=== PATIENT | male | born 1950 | race Caucasian/White ===

== ENCOUNTER 2019-03-03 07:56 | Emergency (ER) | payer BC, OTHER ==
[2019-03-03 08:30] LABS: Absolute Lymphocytes (CBC) 1.6 K/uL (0.7-4.9); Basophils % 1.3 % (0-1.3); Hematocrit 44.9 % (39.6-49.0); Lymphocytes % 25.8 % (15.3-44.8); MPV 7.3 fL (7.6-11.3); Protime INR 1.33
[2019-03-03 08:51] LABS: ALT/SGPT 37 U/L (12-78); AST/SGOT 23 U/L (15-37); Albumin 3.8 g/dL (3.4-5.0); Alkaline Phosphatase 53 U/L (45-117); BUN Blood Urea Nitrogen 17 mg/dL (7-18); Bicarbonate 26 mmol/L (21-32); Bilirubin Direct < 0.1 mg/dL (0-0.2); Bilirubin Total 0.3 mg/dL (0.2-1.0); Glucose Level 154 mg/dL (74-106); Magnesium 1.9 mg/dL (1.8-2.4); NT PRO-BNP 182 pg/mL (<125); Potassium 4.2 mmol/L (3.5-5.1); Protein, Total 7.7 g/dL (6.4-8.2); Sodium Level 139 mmol/L (136-145); Troponin (Emerg Dept Use Only) < 0.02 ng/mL (0.0-0.045)
--- NOTE | 2019-03-03 09:53 | ER ---
Nurse's Notes [facility] Name: Zeus Mcknight Age: 68 yrs Sex: Male : 1950 Arrival Date: 03/03/2019 Time: 08:00 Bed 19 Private MD: Bryce Montgomery Diagnosis: Person with feared health complaint in whom no diagnosis is made Presentation: 03/03 08:07 Presenting complaint: Patient states: FEELS LIKE AFIB. Transition of care: patient was bp not received from another setting of care. Onset of symptoms is unknown. Risk Assessment: Do you want to hurt yourself or someone else? Patient reports no desire to harm self or others. Initial Sepsis Screen: Does the patient meet any 2 criteria? No. Patient's initial sepsis screen is negative. Does the patient have a suspected source of infection? No. Patient's initial sepsis screen is negative. Care prior to arrival: None. 08:07 Method Of Arrival: Ambulatory bp 08:07 Acuity: HARLEEN 2 bp Triage Assessment: 08:09 General: Appears in no apparent distress. comfortable, Behavior is cooperative, bp appropriate for age, anxious. Pain: Denies pain. EENT: No deficits noted. Neuro: No deficits noted. Cardiovascular: Rhythm is sinus rhythm. Respiratory: No deficits noted. GI: No signs and/or symptoms were reported involving the gastrointestinal system. : No signs and/or symptoms were reported regarding the genitourinary system. Derm: No deficits noted. Musculoskeletal: No deficits noted. Historical: - Allergies: 08:09 No Known Allergies; bp - Home Meds: 08:09 sotalol Oral for Prevention of Recurrent Atrial Fibrillation [Active]; Xarelto Oral bp [Active]; Metformin Oral [Active]; Glipizide Oral [Active]; - PMHx: 08:09 Atrial Fib; DVT; pulmonary embolus; Diabetes - NIDDM; bp - Immunization history:: Adult Immunizations up to date. - Social history:: Smoking status: Patient/guardian denies using tobacco. - Ebola Screening: : No symptoms or risks identified at this time. Screenin:11 Abuse screen: Denies threats or abuse. Denies injuries from another. Nutritional bp screening: No deficits noted. Tuberculosis screening: No symptoms or risk factors identified. Fall Risk None identified. Assessment: 08:11 General: SEE TRIAGE NOTE. bp 08:57 Reassessment: ALL CURRENT ORDERS COMPLETED, NO S/S AT THIS TIME. bp 09:58 Reassessment: PT DC HOME AMBULATORY WITH FAMILY, DX WITH DIZZINESS. bp Vital Signs: 08:09 BP 120 / 74; Pulse 86; Resp 12; Temp 97.8; Pulse Ox 95% on R/A; Weight 98.88 kg; Height bp 5 ft. 9 in. (175.26 cm); 08:57 BP 107 / 52; Pulse 83; Resp 21; Pulse Ox 94% ; bp 09:44 BP 118 / 57; Pulse 70; Resp 14; Pulse Ox 96% on R/A; bp 08:09 Body Mass Index 32.19 (98.88 kg, 175.26 cm) bp ED Course: 07:59 Krishan Anderson, RN is Primary Nurse. bp 08:00 Patient arrived in ED. rg4 08:00 Deanne Jimenez [facility]-C [facility]. snw 08:00 Arturo Real MD is Attending Physician. snw 08:01 Bryce Montgomery MD is Private Physician. rg4 08:08 Triage completed. bp 08:09 Arm band placed on right wrist. bp 08:11 Patient has correct armband on for positive identification. Placed in gown. Bed in low bp position. Call light in reach. Side rails up X2. Adult w/ patient. 08:25 Inserted saline lock: 22 gauge in right antecubital area, using aseptic technique. bp Blood collected. 09:40 Bryce Montgomery MD is Referral Physician. snw 09:58 No provider procedures requiring assistance completed. IV discontinued, intact, bp bleeding controlled, No redness/swelling at site. Pressure dressing applied. Administered Medications: No medications were administered Point of Care Testing: Blood Glucose: 08:29 Blood Glucose: 151 mg/dL; bp Ranges: Outcome: 09:40 Discharge ordered by . snw 09:58 Discharged to home ambulatory, with family. bp 09:58 Condition: stable 09:58 Discharge instructions given to patient, Instructed on discharge instructions, follow up and referral plans. Demonstrated understanding of instructions, follow-up care. 09:59 Patient left the ED. bp Signatures: Deanne Jimenez FNP-C PULL UP [employer]-[place] rg4 Justin, Krishan, RN RN bp
--- NOTE | 2019-03-03 09:54 | EDPHYS ---
Physician Documentation [facility] Name: Zeus Mcknight Age: 68 yrs Sex: Male : 1950 Arrival Date: 03/03/2019 Time: 08:00 Bed 19 Private MD: Bryce Montgomery ED Physician Arturo Real HPI: 03/03 08:07 This 68 yrs old Male presents to ER via Unassigned with complaints of Doesn't snw Feel Right. 08:07 Onset: The symptoms/episode began/occurred suddenly, just prior to arrival. Associated snw signs and symptoms: Pertinent positives: weak, dizzy, felt like a. fib. Modifying factors: The patient symptoms are alleviated by rest. The patient has experienced similar episodes in the past, multiple times. It is unknown whether or not the patient has recently seen a physician. pt feels back to normal on arrival. States he has recently added/changed Glipizide . Historical: - Allergies: 08:09 No Known Allergies; bp - Home Meds: 08:09 sotalol Oral for Prevention of Recurrent Atrial Fibrillation [Active]; Xarelto Oral bp [Active]; Metformin Oral [Active]; Glipizide Oral [Active]; - PMHx: 08:09 Atrial Fib; DVT; pulmonary embolus; Diabetes - NIDDM; bp - Immunization history:: Adult Immunizations up to date. - Social history:: Smoking status: Patient/guardian denies using tobacco. - Ebola Screening: : No symptoms or risks identified at this time. ROS: 08:06 Eyes: Negative for injury, pain, redness, and discharge, ENT: Negative for injury, snw pain, and discharge, Neck: Negative for injury, pain, and swelling, Cardiovascular: Negative for chest pain, palpitations, and edema, Respiratory: Negative for shortness of breath, cough, wheezing, and pleuritic chest pain, Abdomen/GI: Negative for abdominal pain, nausea, vomiting, diarrhea, and constipation, Back: Negative for injury and pain, : Negative for injury, bleeding, discharge, and swelling, MS/Extremity: Negative for injury and deformity, Skin: Negative for injury, rash, and discoloration, Psych: Negative for depression, anxiety, suicide ideation, homicidal ideation, and hallucinations. 08:06 Constitutional: Positive for fatigue, felt dizzy and like passing out in shower this am. 08:06 Neuro: Positive for dizziness, "felt like a. fib". Exam: 08:06 Constitutional: This is a well developed, well nourished patient who is awake, alert, snw and in no acute distress. Head/Face: Normocephalic, atraumatic. Eyes: Pupils equal round and reactive to light, extra-ocular motions intact. Lids and lashes normal. Conjunctiva and sclera are non-icteric and not injected. Cornea within normal limits. Periorbital areas with no swelling, redness, or edema. ENT: Nares patent. No nasal discharge, no septal abnormalities noted. Tympanic membranes are normal and external auditory canals are clear. Oropharynx with no redness, swelling, or masses, exudates, or evidence of obstruction, uvula midline. Mucous membranes moist. Neck: Trachea midline, no thyromegaly or masses palpated, and no cervical lymphadenopathy. Supple, full range of motion without nuchal rigidity, or vertebral point tenderness. No Meningismus. Chest/axilla: Normal chest wall appearance and motion. Nontender with no deformity. No lesions are appreciated. Cardiovascular: Regular rate and rhythm with a normal S1 and S2. No gallops, murmurs, or rubs. Normal PMI, no JVD. No pulse deficits. Respiratory: Lungs have equal breath sounds bilaterally, clear to auscultation and percussion. No rales, rhonchi or wheezes noted. No increased work of breathing, no retractions or nasal flaring. Abdomen/GI: Soft, non-tender, with normal bowel sounds. No distension or tympany. No guarding or rebound. No evidence of tenderness throughout. Back: No spinal tenderness. No costovertebral tenderness. Full range of motion. Skin: Warm, dry with normal turgor. Normal color with no rashes, no lesions, and no evidence of cellulitis. MS/ Extremity: Pulses equal, no cyanosis. Neurovascular intact. Full, normal range of motion. Neuro: Awake and alert, GCS 15, oriented to person, place, time, and situation. Cranial nerves II-XII grossly intact. Motor strength 5/5 in all extremities. Sensory grossly intact. Cerebellar exam normal. Normal gait. Psych: Awake, alert, with orientation to person, place and time. Behavior, mood, and affect are within normal limits. Vital Signs: 08:09 BP 120 / 74; Pulse 86; Resp 12; Temp 97.8; Pulse Ox 95% on R/A; Weight 98.88 kg; Height bp 5 ft. 9 in. (175.26 cm); 08:57 BP 107 / 52; Pulse 83; Resp 21; Pulse Ox 94% ; bp 09:44 BP 118 / 57; Pulse 70; Resp 14; Pulse Ox 96% on R/A; bp 08:09 Body Mass Index 32.19 (98.88 kg, 175.26 cm) bp MDM: 08:06 Patient medically screened. snw 09:38 Data reviewed: vital signs, nurses notes. Data interpreted: Pulse oximetry: on room air snw is 96 %. Interpretation: acceptable. Counseling: I had a detailed discussion with the patient and/or guardian regarding: the historical points, exam findings, and any diagnostic results supporting the discharge/admit diagnosis, lab results, radiology results, the need for outpatient follow up, to return to the emergency department if symptoms worsen or persist or if there are any questions or concerns that arise at home. Special discussion: Based on the history and exam findings, there is no indication for further emergent testing or inpatient evaluation. I discussed with the patient/guardian the need to see the primary care provider for further evaluation of the symptoms. 03/03 08:06 Order name: Basic Metabolic Panel; Complete Time: 08:55 snw 03/03 08:06 Order name: CBC with Diff; Complete Time: 08:47 snw 03/03 08:06 Order name: LFT's; Complete Time: 08:55 snw 03/03 08:06 Order name: Magnesium; Complete Time: 08:55 snw 03/03 08:06 Order name: NT PRO-BNP; Complete Time: 08:55 snw 08 08:06 Order name: PT-INR; Complete Time: 08:47 snw 08 08:06 Order name: Troponin (emerg Dept Use Only); Complete Time: 08:55 snw 03/03 08:06 Order name: EKG; Complete Time: 08:07 snw 03/03 08:06 Order name: Cardiac monitoring; Complete Time: 08:07 snw 03/03 08:06 Order name: EKG - Nurse/Tech; Complete Time: 08:07 snw 03/03 08:06 Order name: IV Saline Lock; Complete Time: 08: snw 03/03 08:06 Order name: Labs collected and sent; Complete Time: : snw 03/03 08:06 Order name: O2 Per Protocol; Complete Time: 08: snw 03/03 08:06 Order name: O2 Sat Monitoring; Complete Time: 08: snw 03/03 08:06 Order name: FSBS; Complete Time: snw Administered Medications: No medications were administered Point of Care Testing: Blood Glucose: : Blood Glucose: 151 mg/dL; bp Ranges: Critical Glucose Levels:Adult <50 mg/dl or >400 mg/dl <40 mg/dl or >180 mg/dl Disposition: 10:55 Co-signature as Attending Physician, Arturo Real MD. rn Disposition: 03/03/19 09:40 Discharged to Home. Impression: Person with feared health complaint in whom no diagnosis is made. - Condition is Stable. - Discharge Instructions: Dizziness. - Work release form, Medication Reconciliation Form, Thank You Letter, Antibiotic Education, Prescription Opioid Use form. - Follow up: Bryce Montgomery MD; When: 1 - 2 days; Reason: Recheck today's complaints, Continuance of care, Re-evaluation by your physician. Follow up: Emergency Department; When: As needed; Reason: Worsening of condition. Signatures: Dispatcher [employer] EDMS Deanne Jimenez, ELASTIC CUTTER-C ELASTIC CUTTER-Csnw Arturo Real MD MD rn Peltier, Brian, RN RN bp Corrections: (The following items were deleted from the chart) 09:59 09:40 03/03/2019 09:40 Discharged to Home. Impression: Person with feared health bp complaint in whom no diagnosis is made. Condition is Stable. Forms are Medication Reconciliation Form, Thank You Letter, Antibiotic Education, Prescription Opioid Use. Follow up: Bryce Montgomery; When: 1 - 2 days; Reason: Recheck today's complaints, Continuance of care, Re-evaluation by your physician. Follow up: Emergency Department; When: As needed; Reason: Worsening of condition. snw
[2019-03-03 10:08] VITALS: TEMP 97.8
[2019-03-03 10:10] VITALS: BP 118/57; O2SAT 96
--- NOTE | 2019-03-03 10:40 | EKG ---
Test Date: 2019-03-03 Test Time: 08:06:32 Metal Fabricator Welder: SHANA MEASUREMENT RESULTS: Intervals: Rate: 86 CA: 136 QRSD: 80 QT: 378 QTc: 452 [place]: P: 73 CA: 136 QRS: 58 T: 81 INTERPRETIVE STATEMENTS: Normal sinus rhythm Normal ECG Compared to ECG 06/26/2017 08:13:36 Atrial fibrillation no longer present Electronically Signed On 03-03-19 10:39:06 CDT by Bhanu Lee
== END 2019-03-03 09:59 | disposition home or self-care (01) ==
LOC: ER 07:56
DX: Z71.1 Person with feared health complaint in whom no diagnosis is made (principal); R42 Dizziness and giddiness; I48.91 Unspecified atrial fibrillation; E11.9 Type 2 diabetes mellitus without complications; Z86.718 Personal history of other venous thrombosis and embolism; Z86.711 Personal history of pulmonary embolism; Z79.01 Long term (current) use of anticoagulants; Z79.84 Long term (current) use of oral hypoglycemic drugs
CPT/HCPCS: 36415; 80048; 80076; 82962; 83735; 83880; 84484; 85025; 85610; 93005; 99284

== ENCOUNTER 2019-03-20 04:18 | Emergency (ER) | payer OTHER ==
[2019-03-20] MEDS ORDERED: NA CHLORIDE 0.9% 1,000 ML ONE ×2 (04:52→06:06)
[2019-03-20] MEDS ORDERED: FAMOTIDINE 20 MG/2 ML VIAL IV ONE (04:52)
[2019-03-20] MEDS ORDERED: ONDANSETRON 4 MG/2 ML VIAL ONE (04:52)
[2019-03-20 05:15] LABS: Absolute Lymphocytes (CBC) 0.4 K/uL (0.7-4.9); Basophils % 0.3 % (0-1.3); Hematocrit 45.3 % (39.6-49.0); Lymphocytes % 3.3 % (15.3-44.8); MPV 8.9 fL (7.6-11.3); Protime INR 0.99; RBC Red Blood Cell Count 4.89 M/uL (4.33-5.43)
[2019-03-20 05:34] LABS: ALT/SGPT 32 U/L (12-78); AST/SGOT 17 U/L (15-37); Albumin 3.8 g/dL (3.4-5.0); Alkaline Phosphatase 57 U/L (45-117); BUN Blood Urea Nitrogen 22 mg/dL (7-18); Bicarbonate 27 mmol/L (21-32); Bilirubin Direct 0.1 mg/dL (0-0.2); Bilirubin Total 0.5 mg/dL (0.2-1.0); Glucose Level 166 mg/dL (74-106); Lipase 356 U/L (73-393); Magnesium 1.7 mg/dL (1.8-2.4); Potassium 4.8 mmol/L (3.5-5.1); Protein, Total 8.2 g/dL (6.4-8.2); Sodium Level 139 mmol/L (136-145); Troponin (Emerg Dept Use Only) < 0.02 ng/mL (0.0-0.045)
[2019-03-20 06:07] LABS: Blood Morphology Comment NOT SEEN (NOT SEEN); Platelet Estimate ADEQ; Platelets, Giant FEW
--- NOTE | 2019-03-20 06:31 | ER ---
Nurse's Notes [facility] Name: Zeus Mcknight Age: 68 yrs Sex: Male : 1950 Arrival Date: 03/20/2019 Time: 04:22 Bed 5 Private MD: Diagnosis: acute vomiting;acute diarrhea Presentation: 03/20 04:31 Presenting complaint: Patient states: intermittent abd pain with N/V/D since 230 ak1 03/19/19. Transition of care: patient was not received from another setting of care. Onset of symptoms was March 19, 2019 at 23:00. Risk Assessment: Do you want to hurt yourself or someone else? Patient reports no desire to harm self or others. Initial Sepsis Screen: Does the patient meet any 2 criteria? No. Patient's initial sepsis screen is negative. Does the patient have a suspected source of infection? No. Patient's initial sepsis screen is negative. Care prior to arrival: None. 04:31 Method Of Arrival: Ambulatory ak1 04:31 Acuity: HARLEEN 3 ak1 Triage Assessment: 04:31 General: Appears in no apparent distress. Behavior is calm, cooperative. ak1 04:31 Pain: Denies pain. GI: Reports cramping, diarrhea, nausea, vomiting, since 2299. ak1 Historical: - Allergies: 04:31 No Known Allergies; ak1 - Home Meds: 04:31 Xarelto 15 mg oral tab daily [Active]; sotalol 80 mg oral tab 2 times per day [Active]; ak1 metformin 1,000 mg oral tab 2 times per day [Active]; selenium 200 mcg oral cap [Active]; - PMHx: 04:31 Atrial Fib; Diabetes - NIDDM; pulmonary embolus; DVT; ak1 - PSHx: 04:31 Hernia repair; Carotid surgery; ak1 - Immunization history:: Adult Immunizations unknown. - Social history:: Smoking status: Patient/guardian denies using tobacco. - Ebola Screening: : No symptoms or risks identified at this time. - Family history:: not pertinent. - Hospitalizations: : No recent hospitalization is reported. Screenin:33 Abuse screen: Denies threats or abuse. Denies injuries from another. Nutritional ak1 screening: No deficits noted. Tuberculosis screening: No symptoms or risk factors identified. Fall Risk None identified. Assessment: 04:31 General: Appears in no apparent distress. comfortable. Pain: Denies pain. Neuro: Level cc3 of Consciousness is awake, alert, obeys commands, Oriented to person, place, time, situation, Appropriate for age. Cardiovascular: Denies chest pain, Capillary refill < 3 seconds Patient's skin is warm and dry. Respiratory: Airway is patent Respiratory effort is even, unlabored. GI: Abdomen is round Bowel sounds present X 4 quads. Abd is soft and non tender X 4 quads. : No signs and/or symptoms were reported regarding the genitourinary system. EENT: No signs and/or symptoms were reported regarding the EENT system. Derm: Skin is intact, is healthy with good turgor, Skin is pink, warm \T\ dry. normal. Musculoskeletal: Circulation, motion, and sensation intact. Range of motion: intact in all extremities. 05:32 Reassessment: Patient appears in no apparent distress at this time. Patient and/or cc3 family updated on plan of care and expected duration. Pain level reassessed. Patient is alert, oriented x 3, equal unlabored respirations, skin warm/dry/pink. 06:23 Reassessment: Patient appears in no apparent distress at this time. Patient and/or cc3 family updated on plan of care and expected duration. Pain level reassessed. Patient is alert, oriented x 3, equal unlabored respirations, skin warm/dry/pink. Patient denies pain at this time. Patient states feeling better. Patient states symptoms have improved. 06:48 Reassessment: Dr. Amador ordered discharge for the patient but after the IV fluid bolus.cc3 Vital Signs: 04:29 BP 120 / 46; Pulse 87; Resp 18 S; Temp 98.8(O); Pulse Ox 96% on R/A; Weight 99.79 kg cc3 (R); Height 5 ft. 9 in. (175.26 cm) (R); Pain 0/10; 05:00 BP 106 / 55; Pulse 84; Resp 20; Pulse Ox 94% on R/A; Pain 0/10; tl1 06:04 BP 120 / 49; Pulse 85; Resp 13 S; Pulse Ox 96% on R/A; cc3 06:50 BP 111 / 50; Pulse 89; Resp 16 S; Pulse Ox 95% on R/A; cc3 04:29 Body Mass Index 32.49 (99.79 kg, 175.26 cm) cc3 ED Course: 04:22 Patient arrived in ED. cl3 04:29 Ofe Palacios is Primary Nurse. cc3 04:29 Sky Amador MD is Attending Physician. wa 04:32 Triage completed. ak1 04:32 Arm band placed on Patient placed in an exam room, on a stretcher, on pulse oximetry, ak1 Patient notified of wait time. 04:32 Inserted saline lock: 20 gauge in right antecubital area, using aseptic technique. cc3 Blood collected. inserted by DENIS Sánchez. 04:33 Patient has correct armband on for positive identification. Placed in gown. Bed in low ak1 position. Call light in reach. Side rails up X 1. Adult w/ patient. Pulse ox on. NIBP on. 06:25 Sky Kendrick MD is Referral Physician. wa 06:49 No provider procedures requiring assistance completed. cc3 07:00 Report given to DENIS Beard. cc3 07:15 IV discontinued, intact, bleeding controlled, No redness/swelling at site. Pressure hb dressing applied. Administered Medications: 04:59 Drug: NS 0.9% 1000 ml Route: IV; Rate: 1 bolus; Site: right antecubital; tl1 06:00 Follow up: Response: No adverse reaction; IV Status: Completed infusion; IV Intake: cc3 1000ml 04:59 Drug: Pepcid 20 mg Route: IVP; Infused Over: 2 mins; Site: right antecubital; tl1 05:32 Follow up: Response: No adverse reaction; Pain is decreased cc3 04:59 Drug: Zofran 4 mg Route: IVP; Infused Over: 2 mins; Site: right antecubital; tl1 05:32 Follow up: Response: No adverse reaction; Nausea is decreased cc3 06:09 Drug: NS 0.9% 1000 ml Route: IV; Rate: 1 bolus; Site: right antecubital; cc3 07:15 Follow up: Response: No adverse reaction; IV Status: Completed infusion; IV Intake: hb 1000ml Intake: 06:00 IV: 1000ml; Total: 1000ml. cc3 07:15 IV: 1000ml; Total: 2000ml. hb Outcome: 06:29 Discharge ordered by . wa 06:49 Discharge instructions given to patient, family, Instructed on discharge instructions, cc3 follow up and referral plans. medication usage, Demonstrated understanding of instructions, follow-up care, medications, Prescriptions given X 2. 07:15 Discharged to home ambulatory, with significant other. 07:15 Condition: stable 07:16 Patient left the ED. Signatures: Princess Crooks RN RN tl1 Britney Mora RN RN ak1 Kisha Camejo RN RN Sky Amador MD MD wa Cordel, Charlene cc3 Jean Srinivasan cl3
--- NOTE | 2019-03-20 06:31 | EDPHYS ---
Physician Documentation [facility] Name: Zeus Mcknight Age: 68 yrs Sex: Male : 1950 Arrival Date: 03/20/2019 Time: 04:22 Bed 5 Private MD: ED Physician Sky Amador HPI: 03/20 04:52 This 68 yrs old Male presents to ER via Ambulatory with complaints of wa Abdominal Pain, Nausea/Vomiting/Diarrhea. 04:52 The patient presents to the emergency department with nausea, that is moderate, wa vomiting, 5 times since the onset of symptoms, diarrhea. Onset: The symptoms/episode began/occurred 5 hour(s) ago. Possible causes: unknown. The symptoms are aggravated by nothing. The symptoms are alleviated by nothing. Associated signs and symptoms: Pertinent positives: diarrhea, nausea, vomiting, Pertinent negatives: abdominal pain, constipation, dysuria, fever. Severity of symptoms: At their worst the symptoms were moderate in the emergency department the symptoms are unchanged. The patient has not experienced similar symptoms in the past. The patient has not recently seen a physician. per pt, began vomiting with assoc diarrhea since 11PM last night. denies pain, fever or chills. describes stool as straw-colored. not bloody-appearing. Historical: - Allergies: 04:31 No Known Allergies; ak1 - Home Meds: 04:31 Xarelto 15 mg oral tab daily [Active]; sotalol 80 mg oral tab 2 times per day [Active]; ak1 metformin 1,000 mg oral tab 2 times per day [Active]; selenium 200 mcg oral cap [Active]; - PMHx: 04:31 Atrial Fib; Diabetes - NIDDM; pulmonary embolus; DVT; ak1 - PSHx: 04:31 Hernia repair; Carotid surgery; ak1 - Immunization history:: Adult Immunizations unknown. - Social history:: Smoking status: Patient/guardian denies using tobacco. - Ebola Screening: : No symptoms or risks identified at this time. - Family history:: not pertinent. - Hospitalizations: : No recent hospitalization is reported. ROS: 04:55 Constitutional: Negative for fever, chills, and weight loss, Eyes: Negative for injury, wa pain, redness, and discharge, ENT: Negative for injury, pain, and discharge, Neck: Negative for injury, pain, and swelling, Cardiovascular: Negative for chest pain, palpitations, and edema, Respiratory: Negative for shortness of breath, cough, wheezing, and pleuritic chest pain, Back: Negative for injury and pain, : Negative for injury, bleeding, discharge, and swelling, MS/Extremity: Negative for injury and deformity, Skin: Negative for injury, rash, and discoloration, Neuro: Negative for headache, weakness, numbness, tingling, and seizure, Psych: Negative for depression, anxiety, suicide ideation, homicidal ideation, and hallucinations. 04:55 Abdomen/GI: Positive for nausea and vomiting, nausea, vomiting, and diarrhea, nausea, vomiting, diarrhea, Negative for abdominal pain, black/tarry stool, rectal bleeding. Exam: 04:55 Constitutional: This is a well developed, well nourished patient who is awake, alert, wa and in no acute distress. Head/Face: Normocephalic, atraumatic. Eyes: Pupils equal round and reactive to light, extra-ocular motions intact. Lids and lashes normal. Conjunctiva and sclera are non-icteric and not injected. Cornea within normal limits. Periorbital areas with no swelling, redness, or edema. ENT: Nares patent. No nasal discharge, no septal abnormalities noted. Tympanic membranes are normal and external auditory canals are clear. Oropharynx with no redness, swelling, or masses, exudates, or evidence of obstruction, uvula midline. Mucous membranes moist. Neck: Trachea midline, no thyromegaly or masses palpated, and no cervical lymphadenopathy. Supple, full range of motion without nuchal rigidity, or vertebral point tenderness. No Meningismus. Chest/axilla: Normal chest wall appearance and motion. Nontender with no deformity. No lesions are appreciated. Cardiovascular: Regular rate and rhythm with a normal S1 and S2. No gallops, murmurs, or rubs. Normal PMI, no JVD. No pulse deficits. Respiratory: Lungs have equal breath sounds bilaterally, clear to auscultation and percussion. No rales, rhonchi or wheezes noted. No increased work of breathing, no retractions or nasal flaring. Back: No spinal tenderness. No costovertebral tenderness. Full range of motion. Skin: Warm, dry with normal turgor. Normal color with no rashes, no lesions, and no evidence of cellulitis. MS/ Extremity: Pulses equal, no cyanosis. Neurovascular intact. Full, normal range of motion. Neuro: Awake and alert, GCS 15, oriented to person, place, time, and situation. Cranial nerves II-XII grossly intact. Motor strength 5/5 in all extremities. Sensory grossly intact. Cerebellar exam normal. Normal gait. Psych: Awake, alert, with orientation to person, place and time. Behavior, mood, and affect are within normal limits. 04:55 Abdomen/GI: Inspection: abdomen appears normal, Bowel sounds: normal, Palpation: abdomen is soft and non-tender, in all quadrants. Vital Signs: 04:29 BP 120 / 46; Pulse 87; Resp 18 S; Temp 98.8(O); Pulse Ox 96% on R/A; Weight 99.79 kg cc3 (R); Height 5 ft. 9 in. (175.26 cm) (R); Pain 0/10; 05:00 BP 106 / 55; Pulse 84; Resp 20; Pulse Ox 94% on R/A; Pain 0/10; tl1 06:04 BP 120 / 49; Pulse 85; Resp 13 S; Pulse Ox 96% on R/A; cc3 06:50 BP 111 / 50; Pulse 89; Resp 16 S; Pulse Ox 95% on R/A; cc3 04:29 Body Mass Index 32.49 (99.79 kg, 175.26 cm) cc3 MDM: 04:29 Patient medically screened. vt 04:55 Differential diagnosis: Nonspecific abd pain, gastritis, pancreatitis, viral vt gastroenteritis, gastroenteritis. 05:36 Data reviewed: vital signs, nurses notes, lab test result(s), EKG, radiologic studies. vt Test interpretation: by ED physician or midlevel provider: EKG: Interp by me: HR 85. sinus. nml axis. no acute STEMI. no afib. no significant dysrrhythmia. 05:40 Test interpretation: by ED physician or midlevel provider: labs noted for elevated vt glucose 166. elevated BUN 22, and wbc 11.8. 06:17 Response to treatment: the patient's symptoms have markedly improved after treatment. vt ED course: very much improved. did not make ample urine post 1 liter saline. will give a second liter. labs wnl. pt states feels much better. no vomiting or diarrhea at present. will d/c with meds. . 03/20 04:49 Order name: Basic Metabolic Panel; Complete Time: 05:39 03/20 04:49 Order name: CBC with Diff; Complete Time: 06:33 03/20 04:49 Order name: LFT's; Complete Time: 05:39 03/20 04:49 Order name: Magnesium; Complete Time: 05:39 03/20 04:49 Order name: PT-INR; Complete Time: 05:39 03/20 04:49 Order name: Troponin (emerg Dept Use Only); Complete Time: 05:39 03/20 04:49 Order name: EKG; Complete Time: 04:50 03/20 04:49 Order name: Cardiac monitoring; Complete Time: 04:58 03/20 04:49 Order name: Lipase; Complete Time: 05:39 03/20 05:21 Order name: Manual Differential; Complete Time: 06:33 EDMS 03/20 04:49 Order name: EKG - Nurse/Tech; Complete Time: 04:58 03/20 04:49 Order name: IV Saline Lock; Complete Time: 04:58 03/20 04:49 Order name: Labs collected and sent; Complete Time: 04:58 03/20 04:49 Order name: O2 Sat Monitoring; Complete Time: 04:58 vt Administered Medications: 04:59 Drug: NS 0.9% 1000 ml Route: IV; Rate: 1 bolus; Site: right antecubital; tl1 06:00 Follow up: Response: No adverse reaction; IV Status: Completed infusion; IV Intake: cc3 1000ml 04:59 Drug: Pepcid 20 mg Route: IVP; Infused Over: 2 mins; Site: right antecubital; tl1 05:32 Follow up: Response: No adverse reaction; Pain is decreased cc3 04:59 Drug: Zofran 4 mg Route: IVP; Infused Over: 2 mins; Site: right antecubital; tl1 05:32 Follow up: Response: No adverse reaction; Nausea is decreased cc3 06:09 Drug: NS 0.9% 1000 ml Route: IV; Rate: 1 bolus; Site: right antecubital; cc3 07:15 Follow up: Response: No adverse reaction; IV Status: Completed infusion; IV Intake: hb 1000ml Disposition: 03/20/19 06:29 Discharged to Home. Impression: acute vomiting, acute diarrhea. - Condition is Stable. - Discharge Instructions: Diarrhea, Adult, [id number], Vomiting, Adult. - Prescriptions for Zofran 4 mg Oral Tablet - take 1 tablet by ORAL route every 12 hours As needed; 20 tablet. Pepcid 20 mg Oral Tablet - take 1 tablet by ORAL route once daily for 10 days; 10 tablet. - Medication Reconciliation Form, Thank You Letter, Antibiotic Education, Prescription Opioid Use, Work release form, Family Work Release form. - Follow up: Sky Kendrick MD; When: 1 - 2 days; Reason: Re-evaluation by your physician. - Problem is new. - Symptoms have improved. - Notes: please take the medication as needed as prescribed. follow up with your doctor or the gastro doctor as discussed. return to to the ER immediately for any worsening concerns you may have Signatures: Dispatcher [employer] EDMS Princess Crooks RN RN tl1 Britney Mora RN RN ak1 Kisha Camejo RN RN Sky Amador MD MD vt Ofe Palacios cc3 Corrections: (The following items were deleted from the chart) 07:16 06:29 03/20/2019 06:29 Discharged to Home. Impression: acute vomiting; acute diarrhea. hb Condition is Stable. Forms are Medication Reconciliation Form, Thank You Letter, Antibiotic Education, Prescription Opioid Use. Follow up: Sky Kendrick; When: 1 - 2 days; Reason: Re-evaluation by your physician. Problem is new. Symptoms have improved. emily
[2019-03-20 07:24] VITALS: TEMP 98.8
[2019-03-20 07:28] VITALS: BP 111/50; O2SAT 95
--- NOTE | 2019-03-20 07:31 | EKG ---
Test Date: 2019-03-20 Test Time: 04:56:44 Piling Setter: REGINA MEASUREMENT RESULTS: Intervals: Rate: 85 UT: 136 QRSD: 78 QT: 386 QTc: 459 Stephen: P: 76 UT: 136 QRS: 59 T: 83 INTERPRETIVE STATEMENTS: Normal sinus rhythm Possible Left atrial enlargement Borderline ECG Compared to ECG 03/03/2019 08:06:32 No significant changes Electronically Signed On 03-20-19 07:31:08 CDT by Roberto Nieves
== END 2019-03-20 07:16 | disposition home or self-care (01) ==
LOC: ER 04:18
DX: R11.2 Nausea with vomiting, unspecified (principal); R19.7 Diarrhea, unspecified; E11.9 Type 2 diabetes mellitus without complications; I82.409 Acute embolism and thrombosis of unspecified deep veins of unspecified lower extremity
CPT/HCPCS: 96361; 93005; 85025; 80048; 36415; 83735; 85610; 80076; 84484; 83690; 96375; 96374; 99284; J7030 ×2; J2405

== ENCOUNTER 2020-08-22 10:18 | Emergency (ER) | payer OTHER ==
[2020-08-22 10:51] LABS: Absolute Lymphocytes (CBC) 1.6 K/uL (0.7-4.9); Basophils % 0.9 % (0-1.3); Hematocrit 42.8 % (39.6-49.0); Lymphocytes % 29.5 % (15.3-44.8); MPV 7.1 fL (7.6-11.3); RBC Red Blood Cell Count 4.72 M/uL (4.33-5.43)
[2020-08-22 10:56] LABS: Protime INR 1.05
--- NOTE | 2020-08-22 11:13 | RAD REPORT ---
EXAM DESCRIPTION: Isabelle Single View08/22/2020 11:07 am CLINICAL HISTORY: Palpitations COMPARISON: 2016 FINDINGS: The lungs appear clear of acute infiltrate. The heart is normal size IMPRESSION: No acute abnormalities displayed
[2020-08-22 11:21] LABS: ALT/SGPT 25 U/L (12-78); AST/SGOT 18 U/L (15-37); Albumin 3.8 g/dL (3.4-5.0); Alkaline Phosphatase 51 U/L (45-117); BUN Blood Urea Nitrogen 19 mg/dL (7-18); Bicarbonate 27 mmol/L (21-32); Bilirubin Direct 0.1 mg/dL (0-0.2); Bilirubin Total 0.5 mg/dL (0.2-1.0); Glucose Level 113 mg/dL (74-106); Magnesium 2.1 mg/dL (1.8-2.4); NT PRO-BNP 98 pg/mL (<125); Potassium 4.1 mmol/L (3.5-5.1); Protein, Total 7.7 g/dL (6.4-8.2); Sodium Level 139 mmol/L (136-145); Troponin (Emerg Dept Use Only) < 0.02 ng/mL (0.0-0.045)
--- NOTE | 2020-08-22 11:26 | RAD REPORT ---
EXAM DESCRIPTION: CT - Head Brain Wo Cont - 08/22/2020 11:13 am CLINICAL HISTORY: Dizziness COMPARISON: 2011 TECHNIQUE: Computed axial tomography of the head was obtained. IV contrast was not requested. All CT scans are performed using dose optimization technique as appropriate and may include automated exposure control or mA/KV adjustment according to patient size. FINDINGS: An intracranial bleed is not seen . The ventricles are normal in caliber. No extra-axial fluid collection is noted. Fluid within the sinuses/ mastoids is not seen. IMPRESSION: No acute intracranial abnormality is seen. If patient's symptoms persist MRI of the bra in would be recommended.
--- NOTE | 2020-08-22 12:08 | EDPHYS ---
Physician Documentation [facility] Name: Zeus Mcknight Age: 70 yrs Sex: Male : 1950 Arrival Date: 08/22/2020 Time: 10:30 Bed 17 Private MD: ED Physician Brett Arnold HPI: 08/22 10:57 This 70 yrs old Male presents to ER via EMS with complaints of Irregular pm1 Pulse. 10:57 The patient presents with a history of irregular heart beat. Context: The symptoms pm1 occur at rest, and the patient has a history of atrial fibrillation. Onset: The symptoms/episode began/occurred 1 hour(s) ago. Duration: The patient or guardian reports a single episode, that is now resolved, at onset he took extra sotalol. Modifying factors: The symptoms are aggravated by nothing. The symptoms are alleviated by extra medication. Associated signs and symptoms: Pertinent positives: dizziness, Pertinent negatives: chest pain, cough, fever, SOB. Severity of symptoms: in the emergency department the symptoms have resolved 30 minutes after taking extra sotalol. The patient has experienced similar episodes in the past, a few times. Historical: - Allergies: 10:37 No Known Allergies; ah - Home Meds: 10:37 metformin 1,000 mg Oral tab 2 times per day [Active]; sotalol 80 mg Oral tab 2 times ah per day for Prevention of Recurrent Atrial Fibrillation [Active]; Xarelto 15 mg Oral tab daily [Active]; - PMHx: 10:37 Atrial Fib; Diabetes - NIDDM; DVT; pulmonary embolus; ah - PSHx: 10:37 Hernia repair; Carotid surgery; - Immunization history:: Adult Immunizations not up to date, Pneumococcal vaccine is not up to date, patient has never been vaccinated. - Social history:: Smoking status: Patient denies any tobacco usage or history of. Patient uses alcohol, but reports only rare drinking. ROS: 10:57 Constitutional: Negative for fever, chills, and weight loss, Respiratory: Negative for pm1 shortness of breath, cough, wheezing, and pleuritic chest pain. 10:57 Abdomen/GI: Negative for abdominal pain, nausea, vomiting, diarrhea, and constipation, Back: Negative for injury and pain, MS/Extremity: Negative for injury and deformity, Skin: Negative for injury, rash, and discoloration. 10:57 Cardiovascular: Positive for palpitations, Negative for chest pain, edema. 10:57 Neuro: Positive for dizziness, Negative for headache, numbness, tingling, weakness. Exam: 10:57 Constitutional: This is a well developed, well nourished patient who is awake, alert, pm1 and in no acute distress. Head/Face: Normocephalic, atraumatic. 10:57 Chest/axilla: Normal chest wall appearance and motion. Nontender with no deformity. No lesions are appreciated. 10:57 Back: No spinal tenderness. No costovertebral tenderness. Full range of motion. Skin: Warm, dry with normal turgor. Normal color with no rashes, no lesions, and no evidence of cellulitis. 10:57 Neck: External neck: tenderness, is not appreciated, C-spine: vertebral tenderness, is not appreciated. 10:57 Cardiovascular: Exam negative for acute changes, Rate: normal, Rhythm: regular, Pulses: no pulse deficits are appreciated. 10:57 Respiratory: Exam negative for acute changes, respiratory distress, shortness of breath. 10:57 Abdomen/GI: Inspection: abdomen appears normal, Palpation: abdomen is soft and non-tender, in all quadrants. 10:57 Musculoskeletal/extremity: Extremities: grossly normal except: noted in the left wrist: swelling, tenderness, There is no evidence of abrasion, laceration, puncture, noted in the left elbow: tenderness, no evidence of decreased ROM, deformity, swelling. 10:57 Neuro: Exam negative for acute changes, Orientation: is normal, Motor: is normal, moves all fours. Vital Signs: 10:32 Pain 0/10; ah 10:32 BP 133 / 76; Pulse 71; Resp 15; Temp 97.9; Pulse Ox 95% ; Weight 95.71 kg; Height 5 ft. ah 9 in. (175.26 cm); 12:00 BP 123 / 60; Pulse 66; Resp 14; Pulse Ox 97% ; ah 10:32 Body Mass Index 31.16 (95.71 kg, 175.26 cm) Procedures: 17:23 Splinting: Splint applied to left arm using Orthoglass splint, sugar tong. applied by pm1 myself. Examined by me, post splint application: neurovascular intact, 2+ distal pulses palpable, brisk capillary refill noted, Patient tolerated well. MDM: 10:40 Patient medically screened. pm1 12:07 Data reviewed: vital signs. pm1 12:07 Counseling: I had a detailed discussion with the patient and/or guardian regarding: the pm1 historical points, exam findings, and any diagnostic results supporting the discharge/admit diagnosis, lab results, radiology results, the need for outpatient follow up, to return to the emergency department if symptoms worsen or persist or if there are any questions or concerns that arise at home. 12:07 ED course: Patient noted that his hyster machine operator instructed him to take extra sotalol as pm1 needed for atrial fibrillation. The patient followed his instructions at onset of atrial fibrillation this AM. Patient without any atrial fibrillation during ER visit. He has no symptoms and he wants to go home. 08/22 10:41 Order name: Basic Metabolic Panel; Complete Time: 11:23 pm08/22 10:41 Order name: CBC with Diff; Complete Time: 10:56 pm08/22 10:41 Order name: LFT's; Complete Time: 11:23 pm08/22 10:41 Order name: Magnesium; Complete Time: 11:23 pm08/22 10:41 Order name: NT PRO-BNP; Complete Time: 11:23 pm08/22 10:41 Order name: PT-INR; Complete Time: 10:57 pm08/22 10:41 Order name: Troponin (emerg Dept Use Only); Complete Time: 11:23 pm08/22 10:41 Order name: XRAY Chest (1 view); Complete Time: 11:23 pm08/22 10:41 Order name: EKG; Complete Time: 10:42 pm08/22 10:41 Order name: Cardiac monitoring; Complete Time: 10:47 pm08/22 10:41 Order name: EKG - Nurse/Tech; Complete Time: 10:47 pm08/22 10:41 Order name: IV Saline Lock; Complete Time: 10:47 pm08/22 10:41 Order name: TSH; Complete Time: 11:23 pm08/22 10:57 Order name: CT Head Brain wo Cont; Complete Time: 11:36 pm08/22 10:41 Order name: Labs collected and sent; Complete Time: 10:47 pm08/22 10:41 Order name: O2 Per Protocol; Complete Time: 10:47 pm1 08/22 10:41 Order name: O2 Sat Monitoring; Complete Time: 10:48 pm1 Administered Medications: No medications were administered Disposition: 08/22/20 12:07 Discharged to Home. Impression: Dizziness and giddiness. - Condition is Stable. - Discharge Instructions: Atrial Fibrillation, Dizziness. - Medication Reconciliation Form, Thank You Letter, Antibiotic Education, Prescription Opioid Use form. - Follow up: Emergency Department; When: As needed; Reason: Worsening of condition. Follow up: Private Physician; When: 2 - 3 days; Reason: Recheck today's complaints, Continuance of care, Re-evaluation by your physician. - Problem is new. - Symptoms have improved. Addendum: 08/23/2020 18:27 Co-signature as Attending Physician, Brett Arnold MD. m a2 Signatures: Dispatcher [employer] EDMS Isiah Botello, LISA ACID PURIFICATION EQUIPMENT OPERATOR pm1 Brett Arnold MD MD ma2 Colleen Lee RN RN Corrections: (The following items were deleted from the chart) 08/22 12:34 12:07 08/22/2020 12:07 Discharged to Home. Impression: Dizziness and giddiness. ah Condition is Stable. Forms are Medication Reconciliation Form, Thank You Letter, Antibiotic Education, Prescription Opioid Use. Follow up: Emergency Department; When: As needed; Reason: Worsening of condition. Follow up: Private Physician; When: 2 - 3 days; Reason: Recheck today's complaints, Continuance of care, Re-evaluation by your physician. Problem is new. Symptoms have improved. pm1
--- NOTE | 2020-08-22 12:08 | ER ---
Nurse's Notes [facility] Name: Zeus Mcknight Age: 70 yrs Sex: Male : 1950 Arrival Date: 08/22/2020 Time: 10:30 Bed 17 Private MD: Diagnosis: Dizziness and giddiness Presentation: 08/22 10:32 Coronavirus screen: At this time, the client does not indicate any symptoms associated ah with coronavirus-19. Ebola Screen: No symptoms or risks identified at this time. Risk Assessment: Do you want to hurt yourself or someone else? Patient reports no desire to harm self or others. Onset of symptoms was August 22, 2020. 10:32 Method Of Arrival: EMS: [facility] 10:32 Acuity: HARLEEN 3 10:32 Chief complaint: Patient states: Pt states that he felt like he was having an episode ah of afib and it lasted about 30 mins. He also states that he took an extra dose of his sotalolol 80mg this morning after he felt it start. 10:32 Initial Sepsis Screen: Does the patient meet any 2 criteria? No. Patient's initial sepsis screen is negative. Does the patient have a suspected source of infection? No. Patient's initial sepsis screen is negative. 10:39 Chief complaint:. Historical: - Allergies: 10:37 No Known Allergies; - Home Meds: 10:37 metformin 1,000 mg Oral tab 2 times per day [Active]; sotalol 80 mg Oral tab 2 times ah per day for Prevention of Recurrent Atrial Fibrillation [Active]; Xarelto 15 mg Oral tab daily [Active]; - PMHx: 10:37 Atrial Fib; Diabetes - NIDDM; DVT; pulmonary embolus; - PSHx: 10:37 Hernia repair; Carotid surgery; - Immunization history:: Adult Immunizations not up to date, Pneumococcal vaccine is not up to date, patient has never been vaccinated. - Social history:: Smoking status: Patient denies any tobacco usage or history of. Patient uses alcohol, but reports only rare drinking. Screenin:40 Abuse screen: Denies threats or abuse. Nutritional screening: No deficits noted. Tuberculosis screening: No symptoms or risk factors identified. Fall Risk None identified. Assessment: 10:58 General: Appears in no apparent distress. Behavior is calm, cooperative, appropriate for age. Pain: Denies pain. Neuro: Level of Consciousness is awake, alert, obeys commands, Oriented to person, place, time, situation, Appropriate for age Erecting Engineer are equal bilaterally. Cardiovascular: Reports lightheadedness, palpitations, since about 30 mins this morning Heart tones S1 S2 present Capillary refill < 3 seconds Patient's skin is warm and dry. Rhythm is regular. Respiratory: Airway is patent Respiratory effort is even, unlabored, Respiratory pattern is regular, Breath sounds are clear bilaterally. GI: No signs and/or symptoms were reported involving the gastrointestinal system. Bowel sounds present X 4 quads. Derm: Skin is intact, is healthy with good turgor, Skin is dry. 11:13 Reassessment: Pt to radiology at this time via . Vital Signs: 10:32 Pain 0/10; ah 10:32 BP 133 / 76; Pulse 71; Resp 15; Temp 97.9; Pulse Ox 95% ; Weight 95.71 kg; Height 5 ft. ah 9 in. (175.26 cm); 12:00 BP 123 / 60; Pulse 66; Resp 14; Pulse Ox 97% ; ah 10:32 Body Mass Index 31.16 (95.71 kg, 175.26 cm) ED Course: 10:30 Patient arrived in ED. 10:33 Isiah Botello NP is PHCP. pm1 10:33 Triage completed. 10:38 EKG done, by ED staff, reviewed by Isiah Botello NP. 3 10:40 Brett Arnold MD is Attending Physician. pm1 10:41 Colleen Lee, RN is Primary Nurse. 10:43 Patient maintains SpO2 saturation greater than 95% on room air. 10:44 Initial lab(s) drawn, by nv, sent to lab. Inserted saline lock: 20 gauge in right dh3 antecubital area, using aseptic technique. Blood collected. 10:44 Patient has correct armband on for positive identification. Bed in low position. Call light in reach. Side rails up X 1. transport truck driver on. Pulse ox on. NIBP on. 11:03 Patient notified of wait time. EKG completed in triage. Results shown to MD. 11:07 XRAY Chest (1 view) In Process Unspecified. EDMS 11:13 CT Head Brain wo Cont In Process Unspecified. EDTX 12:32 No provider procedures requiring assistance completed. IV discontinued, intact, ah bleeding controlled, No redness/swelling at site. Pressure dressing applied. Administered Medications: No medications were administered Outcome: 12:07 Discharge ordered by . pm1 12:33 Discharged to home ambulatory. 12:33 Condition: good 12:33 Discharge instructions given to patient, Instructed on discharge instructions, follow up and referral plans. Demonstrated understanding of instructions, follow-up care. 12:34 Patient left the ED. Signatures: Dispatcher [employer] EDTX Isiah Botello CORRESPONDENCE TRANSCRIBER CORRESPONDENCE TRANSCRIBER pm1 Selene Reid 3 Colleen Lee, RN RN Corrections: (The following items were deleted from the chart) 10:40 10:32 Chief complaint: Patient states: Pt states that he felt like he was having an ah episode of afib and it lasted about 30 mins 10:40 10:32 Ebola Screen: No symptoms or risks identified at this time. [facility]
[2020-08-22 12:48] VITALS: TEMP 97.9
[2020-08-22 12:49] VITALS: BP 123/60; O2SAT 97
--- NOTE | 2020-08-23 08:20 | EKG ---
Test Date: 2020-08-22 Test Time: 10:30:41 Air Gun Operator: EFREN MEASUREMENT RESULTS: Intervals: Rate: 66 AL: 140 QRSD: 80 QT: 448 QTc: 469 Pearl: P: 71 AL: 140 QRS: 62 T: 75 INTERPRETIVE STATEMENTS: Normal sinus rhythm Normal ECG Compared to ECG 03/20/2019 04:56:44 No significant changes Electronically Signed On 08-23-20 08:17:46 AGRI BUSINESS AGENT by Roberto Nieves
== END 2020-08-22 12:34 | disposition home or self-care (01) ==
LOC: ER 10:18
DX: R42 Dizziness and giddiness (principal); E11.9 Type 2 diabetes mellitus without complications; I48.91 Unspecified atrial fibrillation
CPT/HCPCS: 36415; 70450; 71045; 80048; 80076; 83735; 83880; 84443; 84484; 85025; 85610; 93005; 99285

== ENCOUNTER 2021-01-14 17:27 | Emergency (ER) | payer OTHER ==
[2021-01-14] MEDS ORDERED: TETANUS & DIPHTHERIA TOX,ADULT 0.5 ML VIAL ONE (21:34)
--- NOTE | 2021-01-14 21:45 | RAD REPORT ---
EXAM DESCRIPTION: RAD - Tib Fib Left - 01/14/2021 9:37 pm CLINICAL HISTORY: PAIN COMPARISON: No comparisons FINDINGS: No acute fracture or dislocation seen.
--- NOTE | 2021-01-14 22:07 | ER ---
Nurse's Notes [facility] Name: Zeus Mcknight Age: 70 yrs Sex: Male : 1950 Arrival Date: 01/14/2021 Time: 17:31 Bed 27 Private MD: Diagnosis: Abrasion, left lower leg Presentation: 01/14 18:24 Chief complaint: Patient states: Fell forward and hit his cantu on a ladder, twisted and kg landed on his coccyx. On the way down hit his left pinky finger. Pt also is complaining of stiff neck from turning quickly. Care prior to arrival: None. Mechanism of Injury: Fall tripped over ladder, fell from standing position to floor. 18:24 Acuity: HARLEEN 4 kg 18:24 Method Of Arrival: Ambulatory kg 18:31 Coronavirus screen: Client denies travel out of the [place] in the last 14 days. At this kg time, unable to obtain information related to travel outside the [place] At this time, the client does not indicate any symptoms associated with coronavirus-19. Ebola Screen: Patient negative for fever greater than or equal to 101.5 degrees Fahrenheit, and additional compatible Ebola Virus Disease symptoms Patient denies exposure to infectious person. Patient denies travel to an Ebola-affected area in the 21 days before illness onset. Initial Sepsis Screen: Does the patient meet any 2 criteria? No. Patient's initial sepsis screen is negative. Does the patient have a suspected source of infection? No. Patient's initial sepsis screen is negative. Risk Assessment: Do you want to hurt yourself or someone else? Patient reports no desire to harm self or others. Onset of symptoms was January 14, 2021 at 15:50. Historical: - Allergies: 18:34 No Known Allergies; kg - Home Meds: 18:34 metformin 1,000 mg Oral tab 2 times per day [Active]; selenium 200 mcg Oral cap kg [Active]; sotalol 80 mg Oral tab 2 times per day for Prevention of Recurrent Atrial Fibrillation [Active]; Xarelto 15 mg Oral tab daily [Active]; - PMHx: 18:35 Atrial Fib; Diabetes - NIDDM; DVT; pulmonary embolus; kg - PSHx: 18:35 Hernia repair; Carotid surgery; kg - Immunization history: Last tetanus immunization: < 10 years ago. - Social history:: Smoking status: Patient denies any tobacco usage or history of. Screenin:30 Abuse screen: Denies threats or abuse. Denies injuries from another. Nutritional kg screening: No deficits noted. Tuberculosis screening: No symptoms or risk factors identified. Fall Risk None identified. Fall in past 12 months (25 points). No secondary diagnosis (0 pts). No IV (0 pts). Ambulatory Aid- None/Bed Rest/Nurse Assist (0 pts). Gait- Weak (10 pts.). Mental Status- Oriented to own ability (0 pts). Total Cartwright Fall Scale indicates No Risk (0-24 pts). Primary Survey: 18:24 NO uncontrolled hemorrhage observed. A: Airway: patent. Breathing/Chest: Respiratory kg pattern: regular, Respiratory effort: spontaneous, unlabored, Breath sounds:. Assessment: 18:24 General: Appears in no apparent distress. Behavior is calm, cooperative, appropriate kg for age, quiet. Pain: Complains of pain in lateral aspect of left calf and left cantu, left pinky finger, coccyx, back of neck Pain radiates to left foot Pain currently is 6 out of 10 on a pain scale. at worst was 6 out of 10 on a pain scale. level that patient reports is acceptable is 2 out of 10 on a pain scale. Quality of pain is described as steady. Neuro: No deficits noted. Level of Consciousness is awake, alert, obeys commands, Oriented to person, place, time, situation. 21:09 Reassessment: Patient appears in no apparent distress at this time. Patient and/or em family updated on plan of care and expected duration. Pain level reassessed. Patient is alert, oriented x 3, equal unlabored respirations, skin warm/dry/pink. Vital Signs: 18:31 BP 115 / 58; Pulse 72; Resp 20; Temp 98.4(O); Pulse Ox 96% on R/A; Weight 94.35 kg (M); kg Height 5 ft. 9 in. (175.26 cm) (M); Pain 6/10; 21:46 BP 122 / 54; Pulse 66; Resp 17; Pulse Ox 96% on R/A; mh5 18:31 Body Mass Index 30.72 (94.35 kg, 175.26 cm) kg ED Course: 17:31 Patient arrived in ED. as 18:27 Triage completed. kg 18:30 Patient has correct armband on for positive identification. kg 18:31 No provider procedures requiring assistance completed. kg 19:31 Brady Lr PA is PHCP. [facility] 19:31 Angel Orlando MD is Attending Physician. [facility] 20:56 Miguelangel Kelly, RN is Primary Nurse. em 21:37 Tib Fib Left XRAY In Process Unspecified. EDMS 21:47 Bed in low position. Call light in reach. Adult w/ patient. Pulse ox on. NIBP on. mh5 22:12 Patient did not have IV access during this emergency room visit. em Administered Medications: 21:13 Drug: Tetanus-Diphtheria Toxoid Adult 0.5 ml {Core Java Software Engineer: [employer]. Exp: em 09/24/2022. Lot #: [id number]. } Route: IM; Site: left deltoid; 22:12 Follow up: Response: No adverse reaction em Outcome: 22:07 Discharge ordered by . [facility] 22:12 Discharged to home ambulatory, with family. em 22:12 Condition: good 22:12 Discharge instructions given to patient, Instructed on discharge instructions, follow up and referral plans. medication usage, wound care, Demonstrated understanding of instructions, follow-up care, medications, wound care, Prescriptions given X 1. 22:12 Patient left the ED. em Signatures: Dispatcher [employer] EDTN Brady Lr PA PA Miguelangel Nava, RN RN Yessica Pratt [facility] Cristina Caldera, RN RN kg
--- NOTE | 2021-01-14 22:07 | EDPHYS ---
Physician Documentation [facility] Name: Zeus Mcknight Age: 70 yrs Sex: Male : 1950 Arrival Date: 01/14/2021 Time: 17:31 Bed 27 Private MD: ED Physician Angel Orlando HPI: 01/14 21:00 This 70 yrs old Male presents to ER via Ambulatory with complaints of Fall jmm Injury - 5ft ladder, Leg Pain. 21:00 Details of fall: The patient fell from an upright position, while standing. Onset: The jmm symptoms/episode began/occurred acutely, just prior to arrival. This is a 70 year old male with a history of DM, PE, atrial fibrillation that presents to the ED with complaints of left lower leg pain. patient states he fell approx 4 feet down a ladder. Denies hitting hit head. Pain localized to the left anterior lower leg. . Historical: - Allergies: 18:34 No Known Allergies; kg - Home Meds: 18:34 metformin 1,000 mg Oral tab 2 times per day [Active]; selenium 200 mcg Oral cap kg [Active]; sotalol 80 mg Oral tab 2 times per day for Prevention of Recurrent Atrial Fibrillation [Active]; Xarelto 15 mg Oral tab daily [Active]; - PMHx: 18:35 Atrial Fib; Diabetes - NIDDM; DVT; pulmonary embolus; kg - PSHx: 18:35 Hernia repair; Carotid surgery; kg - Immunization history: Last tetanus immunization: < 10 years ago. - Social history:: Smoking status: Patient denies any tobacco usage or history of. ROS: 21:00 Constitutional: Negative for fever, chills, and weight loss, Cardiovascular: Negative jmm for chest pain, palpitations, and edema, Respiratory: Negative for shortness of breath, cough, wheezing, and pleuritic chest pain. 21:00 MS/extremity: Positive for injury or acute deformity. 21:00 All other systems are negative. Exam: 21:00 Constitutional: This is a well developed, well nourished patient who is awake, alert, jmm and in no acute distress. Head/Face: atraumatic. Eyes: EOMI, no conjunctival erythema appreciated ENT: Moist Mucus Membranes Neck: Trachea midline, Supple Chest/axilla: Normal chest wall appearance and motion. Cardiovascular: Regular rate and rhythm. No edema appreciated Respiratory: Normal respirations, no respiratory distress appreciated Abdomen/GI: Non distended, soft Back: Normal ROM 21:00 Neuro: Awake and alert, normal gait Psych: Behavior is normal, Mood is normal, Patient is cooperative and pleasant 21:00 Skin: 5 cm superficial laceration noted to the left lower leg. Vital Signs: 18:31 BP 115 / 58; Pulse 72; Resp 20; Temp 98.4(O); Pulse Ox 96% on R/A; Weight 94.35 kg (M); kg Height 5 ft. 9 in. (175.26 cm) (M); Pain 6/10; 21:46 BP 122 / 54; Pulse 66; Resp 17; Pulse Ox 96% on R/A; mh5 18:31 Body Mass Index 30.72 (94.35 kg, 175.26 cm) kg MDM: 21:00 Patient medically screened. [facility] 22:06 Data reviewed: vital signs, nurses notes. Counseling: I had a detailed discussion with ernestine the patient and/or guardian regarding: the historical points, exam findings, and any diagnostic results supporting the discharge/admit diagnosis, radiology results, the need for outpatient follow up, to return to the emergency department if symptoms worsen or persist or if there are any questions or concerns that arise at home. ED course: Xray negative. patient given wound infection return precautions. Patient understood and agrees with the plan of care. . 01/14 20:58 Order name: Clara Cruz Left XRAY; Complete Time: 21:48 em Administered Medications: 21:13 Drug: Tetanus-Diphtheria Toxoid Adult 0.5 ml {Head Doffer: V[employer]. Exp: em 09/24/2022. Lot #: [id number]. } Route: IM; Site: left deltoid; 22:12 Follow up: Response: No adverse reaction em Disposition: 01/15 06:39 Co-signature as Attending Physician, Angel Orlando MD. mh7 Disposition: 01/14/21 22:07 Discharged to Home. Impression: Abrasion, left lower leg. - Condition is Stable. - Discharge Instructions: Abrasion. - Prescriptions for Cephalexin 500 mg Oral Capsule - take 1 capsule by ORAL route every 6 hours for 10 days; 40 capsule. - Medication Reconciliation Form, Thank You Letter, Antibiotic Education, Prescription Opioid Use form. - Follow up: Private Physician; When: 2 - 3 days; Reason: Recheck today's complaints, Continuance of care, Re-evaluation by your physician. Signatures: Dispatcher [employer] Brady Hernández PA PA jmm Munoz, Edgar, RN RN Angel David MD MD mh7 Cristina Caldera RN RN kg Corrections: (The following items were deleted from the chart) 01/14 22:12 22:07 01/14/2021 22:07 Discharged to Home. Impression: Abrasion, left lower leg. em Condition is Stable. Forms are Medication Reconciliation Form, Thank You Letter, Antibiotic Education, Prescription Opioid Use. Follow up: Private Physician; When: 2 - 3 days; Reason: Recheck today's complaints, Continuance of care, Re-evaluation by your physician. ernestine
[2021-01-14 22:27] VITALS: TEMP 98.4; O2SAT 96
[2021-01-14 22:30] VITALS: BP 122/54
== END 2021-01-14 22:12 | disposition home or self-care (01) ==
LOC: ER 17:27
DX: S80.812A Abrasion, left lower leg, initial encounter (principal); W11.XXXA Fall on and from ladder, initial encounter; Z23 Encounter for immunization; Z79.01 Long term (current) use of anticoagulants; Z86.718 Personal history of other venous thrombosis and embolism; E11.9 Type 2 diabetes mellitus without complications; I48.91 Unspecified atrial fibrillation
CPT/HCPCS: 90714

== ENCOUNTER 2023-05-11 14:29 | Emergency (ER) | payer OTHER ==
--- OUTSIDE RECORDS SUMMARY | 2023-05-11 14:33 | XMS REPORT | Continuity of Care Document ---
:1950 Author Organization [facility] t Address [address] [place] [address] [place] [id number] Care Team Providers Name Role Phone Matthew Cohen DO Primary Care Physician JULIETH BETANCOURT Attending Clinician Unavailable BALJEET MONDRAGON Attending Clinician Unavailable Doctor Unassigned, [employer] Attending Clinician Unavailable Julieth Betancourt MD Attending Clinician Only, Adc Test Attending Clinician Unavailable JOSELITO PALUMBO Attending Clinician Unavailable SHREE ROMO Attending Clinician Unavailable BA, ABRAM Attending Clinician Unavailable JULIETH BETANCOURT Admitting Clinician Unavailable Julieth Betancourt MD Admitting Clinician JOSELITO PALUMBO Admitting Clinician Unavailable Payers Payer Name Policy Type Policy Number Effective Date Expiration Date S chad MEDICARE PART A [id number] 2016 \T\ B 00:00:00 [employer] INDEMNITY [id number] 2021 00:00:00 Problems This patient has no known problems. Allergies, Adverse Reactions, Alerts Allergy Allergy Status Severity Reaction(s) Onset Inactive Treating Comm ents Source Name Type Date Date Clinician NO KNOWN Drug Active Univers ALLERGIE Class ity [facility] Medical [place] Social History Social Habit Start Date Stop Date Quantity Comments Source Exposure to Not sure [facility] SARS-CoV-2 (event) Medica l Branch Tobacco use and 2021-07-06 2021-07-06 Never used [facility] exposure 00:00:00 00:00:00 Medical Branch Sex Assigned At [address] [facility] [place] 00:00:00 00:00:00 Medical Branch Smoking Status Start Date Stop Date Source Never smoker [facility] Medications Ordered Filled Start Stop Current Ordering Indication Dosage Frequency Signature Comments Components Source Medication Medication Date Date Medication? Clinician (SIG) Name Name gentamicin Yes PRN, Univers injection 2-10 Starting ity of 14:29: on [facility] 09/01/[address] Until Discontinu ed, CHRISTIANE, Intra-op NaCl 0.9% Yes PRN, Univers (NS) 2-10 Starting ity of injection 14:29: on [facility] 09/01/[address] Until Discontinu ed, Routine, Intra-op neomycin-po Yes PRN, Univer s lymyxin-dex - Starting ity of amethasone 14:29: on [facility] (MAXITROL) 00 09/01/21 at [facility] ical [address] [place] [address] mg/g-10,000 Until unit/g-0.1 Discontinu % ed, ophthalmic Routine, ointment Intra-op gentamicin 2021- No PRN, Univer s injection 09-01 Starting ity o f 14:29: 18:32 on [facility] 00 :15 09/01/[address] Until [place] 09/01/21 at 1232, CHRISTIANE, Intra-op NaCl 0.9% 2021- No PRN, Univers (NS) -04 23-10 Starting ity of injection 14:29: 18:32 on [facility] 00 :15 09/01/[address] Until [place] 09/01/21 at 1232, Routine, Intra-op neomycin-po 2021- No PRN, Unive rs lymyxin-dex 2-04 23- Starting ity of amethasone 14:29: [facility] :15 09/01/21 at Med ical [address] [place] [address] mg/g-10,000 Until [place] unit/g-0.1 09/01/21 at % 1232, ophthalmic Routine, ointment Intra-op dexamethaso Yes PRN, Univer s ne -10 Starting ity of (DECADRON 14:28: on [place] PHOSPHATE) 00 09/01/21 at Med ical injection [address] [place] [address] Until Discontinu ed, Routine, Intra-op ceFAZolin Yes PRN, Univers (ANCEF) 10 Starting ity of injection 14:28: on [place] 00 09/01/21 at Medical [address] [place] [address] Until Discontinu ed, CHRISTIANE, Intra-op dexamethaso 2021-0 2021- No PRN, Unive rs ne 09-01 Starting ity of (DECADRON 14:28: 18:32 on [facility] [place] PHOSPHATE) 00 :15 09/01/21 at Med ical injection [address] [place] [address] Until Liana 09/01/21 at 1232, Routine, Intra-op ceFAZolin 2021- No PRN, Univers (ANCEF) 09-01 Starting ity of injection 14:28: 18:32 on [place] 00 :15 09/01/21 at Medical [facility] [place] Until [place] 09/01/21 at 1232, CHRISTIANE, Intra-op DUOVISC Yes PRN, Univers (DUOVISC 10 Starting ity of VISCO 14:26: on [place] ELASTIC) 3 00 09/01/21 at Med ical %-4 %(0.5 0826, Branch mL) 1 % Until (0.55 mL) Discontinu intraocular ed, injection Routine, Intra-op DUOVISC 2021-0 2021- No PRN, Univers (DUOVISC 09-01 Starting ity of VISCO 14:26: 18:32 on [place] ELASTIC) 3 00 :15 09/01/21 at Med ical %-4 %(0.5 0826, Branch mL) 1 % Until [place] (0.55 mL) 09/01/21 at intraocular 1232, injection Routine, Intra-op EPINEPHrine 0 Yes PRN, Univer s (PF) 2- Starting ity of 1:1,000 (1 14:19: on [place] mg/mL) 00 2/10/22 at [facility] (ADRENALIN 0819, Branch (PF)) Until injection Discontinu ed, Routine, Intra-op EPINEPHrine 2021- No PRN, Unive rs (PF) 2-04 23-10 Starting ity of 1:1,000 (1 14:19: 18:32 on [place] mg/mL) 00 :15 09/01/21 at [facility] (ADRENALIN 0819, Branch (PF)) Until [place] injection 09/01/21 at 1232, Routine, Intra-op balanced Yes PRN, Univers salt soln 2-10 Starting ity of no.2 irrig. 14:17: on [facility] [place] (BSS) 00 09/01/21 at [facility] ophthalmic [facility] [place] solution Until Discontinu ed, Routine, Intra-op balanced 2021- No PRN, Univers salt soln 2-04 23-10 Starting ity o f no.2 irrig. 14:17: 18:32 on [facility] [place] as (BSS) 00 :15 09/01/21 at [place] [address], Branch solution Until [place] 09/01/21 at 1232, Routine, Intra-op water for Yes PRN, Univers irrigation 2-10 Starting ity o f irrigation 14:13: on [facility] [place] solution 00 09/01/[address] [facility] 08, Branch Until Discontinu ed, Routine, Intra-op water for 2021- No PRN, Univers irrigation 2-10 -10 Starting ity of irrigation 14:13: 18:32 on [facility] solution 00 :15 09/01/[address] [facility] 0813, Branch Until [place] 09/01/21 at 1232, Routine, Intra-op tetracaine Yes PRN, Univers (PONTOCAINE 2-10 Starting ity of ) 0.5 % 14:11: on [facility] ophthalmic 00 09/01/21 at [facility] ical drops 08, Branch Until Discontinu ed, Routine, Intra-op eye block Yes PRN, Univers syringe 11 2-10 Starting ity o f mL 14:11: on [facility] [place] 00 09/01/21 at [facility] 08, Branch Until Discontinu ed, Intra-op tetracaine 2021- No PRN, Univer s (PONTOCAINE 09-01 Starting ity of ) 0.5 % 14:11: 18:32 on [place] ophthalmic 00 :15 09/01/21 at [facility] ical drops 0811, Branch Until [place] 09/01/21 at 1232, Routine, Intra-op eye block 2021- No PRN, Univers syringe 11 09-01 Starting ity of mL 14:11: 18:32 on [place] 00 :15 09/01/21 at Medical 0811, Branch Until [place] 09/01/21 at 1232, Intra-op cyclopent 2021- No .5mL 0.5 mL, Univ ers 1%-tropic 09-01 Right Eye, ity of 1%-phenyl 12:30: 12:37 ONCE, [place] 2.5%-ketor 00 :00 dose, On Medic al 0.5% [facility] (MYDRIATIC 09/01/21 at #5) 0630, ophthalmic Routine, solution DSU Pre-op syringe 0.5 mL lactated 2021- No 1000mL at 42 Unive rs ringers IV 210 02-10 mL/hr, ity of infusion 12:30: 12:51 1,000 mL, [place] 1,000 mL 00 :00 IV Medical Infusion, Branch ONCE, 1 dose, On [place] 09/01/21 at 0630, Routine, DSU Pre-op cyclopent 2021- No .5mL 0.5 mL, Univ ers 1%-tropic 09-01 Right Eye, ity of 1%-phenyl 12:30: 12:37 ONCE, 1 [place] 2.5%-ketor 00 :00 dose, On Medic al 0.5% [place] Branch (MYDRIATIC 09/01/21 at #5) 0630, ophthalmic Routine, solution DSU Pre-op syringe 0.5 mL lactated 2021- No 1000mL at 42 Unive rs ringers IV 2-10 02-10 mL/hr, ity of infusion 12:30: 12:51 1,000 mL, [place] 1,000 mL 00 :00 IV Medical Infusion, [place]ora ONCE, 1 dose, On [place] 09/01/21 at 0630, Routine, DSU Pre-op rivaroxaban 2022-0 Yes 15mg Take 15 mg Univers (XARELTO) 2-10 by mouth 2 ity of 15 mg 10:32: (two) [place] tablet 11 times Medical daily. Branch sotaloL 80 2022-0 Yes 80mg Take 80 mg U nivers mg tablet 2-10 by mouth ity of 10:32: every 12 [place] 11 (twelve) Medical hours. Branch metFORMIN 2022-0 Yes 1000mg Take 1,000 Univers 1,000 mg 2-10 mg by ity of tablet 10:32: mouth 2 [place] 11 (two) Medical times Branch daily with meals. rivaroxaban 2022-0 Yes 15mg Take 15 mg Univers (XARELTO) 2-10 by mouth 2 ity of 15 mg 10:32: (two) [place] tablet 11 times Medical daily. Branch sotaloL 80 2022-0 Yes 80mg Take 80 mg U nivers mg tablet 2-10 by mouth ity of 10:32: every 12 [place] 11 (twelve) Medical hours. Branch metFORMIN 2022-0 Yes 1000mg Take 1,000 Univers 1,000 mg 2-10 mg by ity of tablet 10:32: mouth 2 [place] 11 (two) Medical times [place] daily with meals. rivaroxaban 2022-0 Yes 15mg Take 15 mg Univers (XARELTO) 2-10 by mouth 2 ity of 15 mg 10:32: (two) [place] tablet 11 times Medical daily. Branch sotaloL 80 2022-0 Yes 80mg Take 80 mg U nivers mg tablet 2-10 by mouth ity of 10:32: every 12 [place] 11 (twelve) Medical hours. Branch metFORMIN 2022-0 Yes 1000mg Take 1,000 Univers 1,000 mg 2-10 mg by ity of tablet 10:32: mouth 2 [place] 11 (two) Medical times [place] daily with meals. rivaroxaban 2022-0 Yes 15mg Take 15 mg Univers (XARELTO) 1-10 by mouth 2 ity of 15 mg 10:10: (two) [place] tablet 18 times Medical daily. Branch sotaloL 80 2022-0 Yes 80mg Take 80 mg U nivers mg tablet 1-10 by mouth ity of 10:10: every 12 [place] 18 (twelve) Medical hours. Branch metFORMIN 2021-0 Yes 1000mg Take 1,000 Univers 1,000 mg 1-10 mg by ity of tablet 10:10: mouth 2 [place] 18 (two) Medical times [place] daily with meals. rivaroxaban 2022-0 Yes 15mg Take 15 mg Univers (XARELTO) 1-10 by mouth 2 ity of 15 mg 10:10: (two) [place] tablet 18 times Medical daily. Branch sotaloL 80 2021-0 Yes 80mg Take 80 mg U nivers mg tablet 1-10 by mouth ity of 10:10: every 12 [place] 18 (twelve) Medical hours. Branch metFORMIN 2021-0 Yes 1000mg Take 1,000 Univers 1,000 mg 1-10 mg by ity of tablet 10:10: mouth 2 [place] 18 (two) Medical times [place] daily with meals. rivaroxaban 2021-0 Yes 15mg Take 15 mg Univers (XARELTO) 1-10 by mouth 2 ity of 15 mg 10:10: (two) [place] tablet 18 times Medical daily. Branch sotaloL 80 2021-0 Yes 80mg Take 80 mg U nivers mg tablet 1-10 by mouth ity of 10:10: every 12 [place] [address] (twelve) Medical hours. Branch metFORMIN 2021-0 Yes 1000mg Take 1,000 Univers 1,000 mg 1-10 mg by ity of tablet 10:10: mouth 2 [place] 18 (two) Medical times [place] daily with meals. Vital Signs Vital Name Observation Time Observation Value Comments Source Oxygen saturation in 2021-09-01 15:21:00 97 /min [facility] Arterial blood by [facility] Pulse oximetry Branch Heart rate 2021-09-01 15:21:00 63 /min [facility] Respiratory rate 2021-09-01 15:21:00 25 /min [facility] Systolic blood 2021-09-01 15:19:00 98 mm[Hg] Univer sity [facility] Diastolic blood 2021-09-01 15:19:00 55 mm[Hg] Unive [facility] Body temperature 2021-09-01 14:39:00 36.28 [place]ie [facility] Body height 2021-08-18 17:11:00 175.3 cm [facility] Body weight 2021-08-18 17:11:00 94.3 kg [facility] BMI 2021-08-18 17:11:00 30.69 kg/m2 [facility] Systolic blood 2021-09-01 12:36:00 132 mm[Hg] Univer sity of [facility] Diastolic blood 2021-09-01 12:36:00 59 mm[Hg] [facility] [place] [facility] Heart rate 2021-09-01 12:36:00 69 /min [facility] Body temperature 2021-09-01 12:36:00 36.72 Minnie [facility] Res[facility] rate 2021-09-01 12:36:00 17 /min [facility] Oxygen saturation in 2021-09-01 12:36:00 98 /min [facility] Arterial blood by [facility] Pulse oximetry [place] Body height 2021-08-18 17:11:00 175.3 cm [facility] Body weight 2021-08-18 17:11:00 94.3 kg [facility] BMI 2021-08-18 17:11:00 30.69 kg/m2 [facility] Procedures Procedure Date / Time Performing Source Performed Clinician PATIENT QUESTIONNAIRE 2021-09-14 Doctor Unassigned, [facility] 06:01:00 [employer] [facility] PHACOEMULSIFICATION OF 2021-09-01 Julieth Betancourt [facility] CATARACT WITH INTRAOCULAR 13:55:00 [facility] [place] LENS IMPLANT POCT GLUCOSE (AUTOMATED) 2021-09-01 Julieth Betancourt [facility] 12:46:00 [facility] POCT GLUCOSE (AUTOMATED) 2021-09-01 Serafin [facility] 12:46:00 [facility] ASSIGNMENT OF BENEFITS 2021-08-30 Doctor Unassigned, [facility] 14:17:01 [employer] [facility] Encounters Start End Encounter Admission Attending Care Care Encounter Source Date/Time Date/Time Type Type Clinicians Facility Department ID 2021-08-03 Outpatient Han BETANCOURT [facility] OPH [id number] [facility] 09:43:07 [facility] 2021-08-03 Outpatient Han BETANCOURT [facility] OPH [id number] Univers 08:58:14 JULIETH dennison [facility] 2023-01-11 2023-01-11 Outpatient GAUTAM MONDRAGON [facility] [id number] [place] 09:15:00 09:15:00 [place] -[id number] [facility] 2021-09-14 2021-09-14 Orders Doctor PALACIO 1.2.840.114 [id number] Univers 00:00:00 00:00:00 Only Unassigned, BRANDO 350.1.13.10 ity of [employer] [facility] 4.2.7.2.686 [place] [id number] [facility] 009 Branch 2021-09-01 2021-09-01 [facility] [id number] Univers 06:27:00 09:40:00 JULIETH dennison [facility] 2021-09-01 2021-09-01 [facility] [id number] Univers 06:27:00 09:40:00 Encounter Julieth WELLS 350.1.13.10 ity of [place] SURGICAL [id number] [facility] 071 Branch 2021-09-01 2021-09-[address] [facility] 1.2.840.114 [id number] Univers 07:30:00 08:05:00 Julieth WELLS 350.1.13.10 i ty of [place] 4[place]2.[place].686 [place] SURGICAL [id number] [facility] 020 Branch 2021-08-30 2021-08-30 Laboratory Only, Adc Test [facility] 1.2.840. 114 [id number] Univers 08:15:00 08:30:00 Only Julieth Betancourt 350.1.1 3.10 ity of [place]2.7.2.686 [place] CAMPUS [id number] [facility] 353 Branch 2021-08-30 2021-08-30 Outpatient Han [facility]OURT [facility] [id number] Univers 08:15:00 08:15:00 JULIETH dennison [facility] 2021-08-30 2021-08-30 Orders Doctor HAKEEM 1.2.840.114 [id number] Univers 00:00:00 00:00:00 Only Unassigned, BRANDO 350.1.13.10 ity of [employer] HOSPITAL 4.2.7.2.686 [place] [id number] [address] 2021-08-03 2021-08-03 Laboratory Only, Adc Test [facility] 1.2.840. 114 [id number] Univers 09:15:00 09:30:00 Only Julieth Betancourt 350.1.1 3.10 ity of [place] 4.2.7.2.686 [facility] [id number] [place] [address] Branch 2021-08-03 2021-08-03 Outpatient Han [facility] [id number] Univers 09:15:00 09:15:00 JULIETH dennison [facility] 2021-08-03 2021-08-03 Orders Doctor HAKEEM 1.2.840.114 [id number] Univers 00:00:00 00:00:00 Only Unassigned, BRANDO 350.1.13.10 ity of [employer] HOSPITAL 4.2.7.2.686 [place] [id number] [address] 2019-05-22 2019-05-22 Outpatient GAUTAM MIRZAMAY [facility] [id number] [place] 15:20:00 15:20:00 BALJEET [id number] [facility] 2015-07-01 2015-07-01 Outpatient GAUTAM MIRZAMAY [facility] [id number] [place] 09:58:00 09:58:00 BALJEET [id number] [facility] 2015-06-26 2015-06-27 Inpatient ER LINWOOD, [facility] MED [id number] [place] 22:58:00 16:25:00 JOSELITO [id number] [facility] 2014-07-02 2014-07-02 Outpatient GAUTAM MIRZAMAY [facility] [id number] [place] 15:45:00 15:45:00 BALJEET [id number] [facility] 2013-11-14 2013-11-14 Outpatient GAUTAM ROMO [facility] [id number] [place] 08:30:00 08:30:00 SHREE [id number] [facility] 2013-10-16 2013-10-16 Outpatient GAUTAM MONDRAGON [facility] [id number] [place] 10:44:00 10:44:00 [id number] [facility] 2013-04-17 2013-04-17 Outpatient GAUTAM MONDRAGON [facility] [id number] [place] 11:34:00 11:34:00 [id number] [facility] 2011-10-26 2011-10-26 Outpatient GAUTAM MONDRAGON [facility] [id number] [place] 10:02:00 10:02:00 [id number] [facility] 2010-08-12 2010-08-12 Outpatient GAUTAM MONDRAGON [facility] [id number] [place] 11:37:00 11:37:00 [id number] [facility] 2009-08-06 2009-08-06 Outpatient GAUTAM MONDRAGON [facility] [id number] [place] 10:28:00 10:28:00 [id number] [facility] 2008-07-21 2008-07-21 Outpatient GAUTAM MONDRAGON [facility] [id number] [place] 15:21:00 15:21:00 [id number] [facility] 2006-11-09 2006-11-09 Outpatient GAUTAM MONDRAGON [facility] [id number] [place] 09:13:00 09:13:00 [id number] [facility] 2005-10-27 2005-10-27 Outpatient GAUTAM MONDRAGON [facility] [id number] [place] 10:33:00 10:33:00 [id number] [facility] 2004-07-19 2004-07-19 Emergency ER BA, ABRAM [facility] [id number] [place] 00:47:00 03:40:00 -[id number] [facility] Results Test Description Test Time Test Comments Results Result Comments Source POCT GLUCOSE (AUTOMATED) 2021-09-01 12:50:30 Test Item Value Reference Range Interpretation Comme nts POCT GLU (test code = 2072169567) 174 mg/dL 70-110 H Lab Interpretation (test code = 64240-7) [facility] 12:50:30 Test Item Value Reference Range Interpretation Comments POCT GLU (test code = [id number]) 174 mg/dL 70-110 H Lab Interpretation (test code = Abnormal 06754-7) [facility]
[2023-05-11 14:56] LABS: Hematocrit 41.7 % (39.6-49.0); Lymphocytes % 29.3 % (15.3-44.8); MCV 91.5 fL (80-100); MPV 7.1 fL (7.6-11.3); Platelets 207 thou/uL (152-406); RBC Red Blood Cell Count 4.56 M/uL (4.33-5.43)
[2023-05-11 15:24] LABS: Troponin High Sensitivity 4.8 pg/mL (<58.9)
[2023-05-11 15:28] LABS: Potassium 3.9 mEq/L (3.5-5.1)
--- NOTE | 2023-05-11 15:40 | EDPHYS ---
Physician Documentation [facility] Name: Zeus Mcknight Age: 73 yrs Sex: Male : 1950 Arrival Date: 05/11/2023 Time: 14:29 Bed 2 Private MD: ED Physician Dom Kiser HPI: 05/11 14:51 This 73 yrs old Male presents to ER via EMS with complaints of Chest Pain. cp3 14:51 Patient is a 73-year-old male with a history of atrial fibrillation on sotalol who cp3 endorses he did not take his medication last night and this morning who presents to the ED after a near syncopal episode while outside gardening. Patient endorses he started feeling palpitations and folic he was in a pass out and started having 4 out of 10 chest tightness. Patient endorses that with rest upon arrival to ED symptoms have resolved. Patient endorses 0 out of 10 chest pain, no shortness of breath, and rate feels normal. Patient endorses he does have a history of DVT and PE for which she was treated at [facility] several years ago. Patient is on oral anticoagulation. Patient denies any leg swelling, recent travel, shortness of breath on exertion and shortness of breath at rest. Shortness of breath experience today was acute related to the palpitations that were brief lasting approximately 20 minutes prior to arrival and have now resolved. Historical: - Allergies: 14:36 No Known Allergies; aa5 - Home Meds: 14:36 sotalol 80 mg Oral tab 2 times per day for Prevention of Recurrent Atrial Fibrillation aa5 [Active]; Xarelto 15 mg Oral tab daily [Active]; 14:44 metformin 1,000mg tab Oral tab 2 times per day [Active]; aa5 - PMHx: 14:36 Atrial Fib; Diabetes - NIDDM; DVT; pulmonary embolus; aa5 - Immunization history:: Adult Immunizations unknown. - Social history:: Smoking status: Patient denies any tobacco usage or history of. - Family history:: not pertinent. ROS: 14:53 Constitutional: Negative for fever, chills, and weight loss, Eyes: Negative for injury, cp3 pain, redness, and discharge, ENT: Negative for injury, pain, and discharge, Neck: Negative for injury, pain, and swelling, 14:53 Respiratory: Negative for shortness of breath, cough, wheezing, and pleuritic chest pain, Abdomen/GI: Negative for abdominal pain, nausea, vomiting, diarrhea, and constipation, Back: Negative for injury and pain, : Negative for injury, bleeding, discharge, and swelling, MS/Extremity: Negative for injury and deformity, Skin: Negative for injury, rash, and discoloration, 14:53 Cardiovascular: Positive for palpitations, 14:53 Neuro: Positive for near syncope, Exam: 14:53 Constitutional: This is a well developed, well nourished patient who is awake, alert, cp3 and in no acute distress. Head/Face: Normocephalic, atraumatic. Eyes: Pupils equal round and reactive to light, extra-ocular motions intact. Lids and lashes normal. Conjunctiva and sclera are non-icteric and not injected. Cornea within normal limits. Periorbital areas with no swelling, redness, or edema. ENT: Nares patent. No nasal discharge, no septal abnormalities noted. Tympanic membranes are normal and external auditory canals are clear. Oropharynx with no redness, swelling, or masses, exudates, or evidence of obstruction, uvula midline. Mucous membranes moist. Neck: Trachea midline, no thyromegaly or masses palpated, and no cervical lymphadenopathy. Supple, full range of motion without nuchal rigidity, or vertebral point tenderness. No Meningismus. Chest/axilla: Normal chest wall appearance and motion. Nontender with no deformity. No lesions are appreciated. Cardiovascular: Regular rate and rhythm with a normal S1 and S2. No gallops, murmurs, or rubs. Normal PMI, no JVD. No pulse deficits. Respiratory: Lungs have equal breath sounds bilaterally, clear to auscultation and percussion. No rales, rhonchi or wheezes noted. No increased work of breathing, no retractions or nasal flaring. Abdomen/GI: Soft, non-tender, with normal bowel sounds. No distension or tympany. No guarding or rebound. No evidence of tenderness throughout. Back: No spinal tenderness. No costovertebral tenderness. Full range of motion. Skin: Warm, dry with normal turgor. Normal color with no rashes, no lesions, and no evidence of cellulitis. MS/ Extremity: Pulses equal, no cyanosis. Neurovascular intact. Full, normal range of motion. Neuro: Awake and alert, GCS 15, oriented to person, place, time, and situation. Cranial nerves II-XII grossly intact. Motor strength 5/5 in all extremities. Sensory grossly intact. Cerebellar exam normal. Normal gait. Vital Signs: 14:30 BP 130 / 71; Pulse 99; Resp 13 S; Temp 98.3(O); Pulse Ox 94% on R/A; Weight 75.5 kg aa5 (M); Height 5 ft. 9 in. (R); 14:30 Body Mass Index 24.58 (75.50 kg, 175.26 cm) aa5 MDM: 14:33 Patient medically screened. cp3 14:53 Differential diagnosis: abnormal EKG, anxiety, coronary artery disease chest wall pain, cp3 congestive heart failure pleurisy, pulmonary embolus, stable angina, unstable angina, arrythmia, afib with rvr. HEART Score: History: Slightly Suspicious (0), ECG: Normal (0), Age: > or = 65 years (2), Risk Factors: Troponin: < or = 1 x Normal Limit (0). HEART Score: Risk Factors: 1 or 2 risk factors (1), [DM] Troponin: < or = 1 x Normal Limit (0). 14:53 Data reviewed: vital signs, nurses notes, EMS record, EKG. Consideration of cp3 Admission/Observation Escalation of care including admission/observation considered. Hospitalization offered to patient at bedside patient endorses he is feeling much better if his labs are negative for heart attack and wants to go home. I considered the following discharge prescriptions or medication management in the emergency department Medications were administered in the Emergency Department. See MAR. Independent interpretation of the following test(s) in the Emergency Department cardiac monitor technician: EKG interpreted by me at 1441: Normal sinus rhythm rate 98 QT 362 QTc 462 no evidence of acute TX, Rhythm Strip Interpretation Rate: 98BPM Rhythm: regular. Test considered but Not performed: CT: Patient declined CT of the chest PE protocol. Patient is on oral anticoagulation. Historians other than the Patient: Spouse/Significant Other: Patient's endorses that patient has bouts of these nursing above episodes related to his A-fib but normally bounces back a little bit faster patient is sitting at his baseline currently. Patient's endorses she feels comfortable watching him at home if he goes home. 15:41 ED course: patient asymptomatic and wants to go home. dc home with close outpatient cp3 follow up. 05/11 14:38 Order name: Basic Metabolic Panel; Complete Time: 15:31 aa5 05/11 15:31 Interpretation: NA 135; K 3.9; CL 102; CO2 27; ANION GAP 9.9; GLUC 277; BUN 19; CRE cp3 1.30; GFR 58; CA 9.1. 05/11 14:38 Order name: CBC with Diff; Complete Time: 15:19 aa05/11 15:25 Interpretation: WBC 6.70; RBC 4.56; HGB 14.6; HCT 41.7; MCV 91.5; MCH 32.1; MCHC 35.1; cp3 PLT 207; RDW 13.3; MPV 7.1; TOBIAS% 58.2; LYM% 29.3; MN% 7.4; EOSINOPHIL % 4.2; BASO% 0.9; NEUT A 3.9; LYMA 2.0; MNA 0.5; EOSA 0.3; BASOA 0.1. 05/11 14:38 Order name: Troponin HS; Complete Time: 15:31 aa5 05/11 15:31 Interpretation: Within normal limits: Troponin HS 4.8. 3 05/11 14:38 Order name: XRAY Chest (1 view) aa 05/11 15:32 Interpretation: Chest x-ray interpreted by me no acute cardiopulmonary proce. 3 05/11 14:38 Order name: EKG; Complete Time: 14:38 05/11 14:38 Order name: Cardiac monitoring; Complete Time: 14:38 5 05/11 14:38 Order name: EKG - Nurse/Tech; Complete Time: 14:47 5 05/11 14:38 Order name: IV Saline Lock; Complete Time: 14:38 5 05/11 14:38 Order name: Labs collected and sent; Complete Time: 14:38 aa05/11 14:38 Order name: O2 Per Protocol; Complete Time: 14:38 5 05/11 14:38 Order name: O2 Sat Monitoring; Complete Time: 14:38 aa Administered Medications: No medications were administered Disposition Summary: 05/11/23 15:39 Discharge Ordered Notes: Location: Home cp3 Condition: Stable cp3 Diagnosis - Paroxysmal atrial fibrillation cp3 - Palpitations cp3 - Syncope Near cp3 - Chest pain, unspecified cp3 Followup: cp3 - With: Anderson Jamison MD - When: 1 week - Reason: Discharge Instructions: - Discharge Summary Sheet cp3 - Atrial Fibrillation cp3 - Nonspecific Chest Pain, Adult cp3 - Near-Syncope cp3 Forms: - Medication Reconciliation Form cp3 - Thank You Letter cp3 - Antibiotic Education cp3 - Prescription Opioid Use cp3 - Patient Portal Instructions cp3 - Leadership Thank You Letter cp3 Signatures: Dispatcher [employer] Dom Worley MD MD cp3 Cathryn Dean, RN RN aa5 Corrections: (The following items were deleted from the chart) 14:45 14:36 Home Meds: selenium 200 mcg Oral cap; aa5 aa5 14:45 14:36 Home Meds: metformin 1 Oral tab 2 times per day; aa5 aa5 15:32 15:31 Troponin HS 4.8. cp3 cp3
--- NOTE | 2023-05-11 15:40 | ER ---
Nurse's Notes [facility] Name: Zeus Mcknight Age: 73 yrs Sex: Male : 1950 Arrival Date: 05/11/2023 Time: 14:29 Bed 2 Private MD: Diagnosis: Paroxysmal atrial fibrillation;Palpitations;Syncope Near;Chest pain, unspecified Presentation: 05/11 14:30 Chief complaint: EMS states: sudden onset of dizziness, feeling lightheaded, and chest aa5 pain after eating lunch today. EMS reports A-fib with RVR upon scene arrival and pt currently NSR. Pt reports taking Sotalol today. 14:30 Coronavirus screen: At this time, the client does not indicate any symptoms associated aa5 with coronavirus-19. Ebola Screen: Patient denies travel to an Ebola-affected area in the 21 days before illness onset. Initial Sepsis Screen: Does the patient meet any 2 criteria? No. Patient's initial sepsis screen is negative. Does the patient have a suspected source of infection? No. Patient's initial sepsis screen is negative. Risk Assessment: Do you want to hurt yourself or someone else? Patient reports no desire to harm self or others. Onset of symptoms was May 11, 2023. 14:30 Acuity: HARLEEN 3 aa5 14:30 Method Of Arrival: EMS: [facility] aa5 Historical: - Allergies: 14:36 No Known Allergies; aa5 - Home Meds: 14:36 sotalol 80 mg Oral tab 2 times per day for Prevention of Recurrent Atrial Fibrillation aa5 [Active]; Xarelto 15 mg Oral tab daily [Active]; 14:44 metformin 1,000mg tab Oral tab 2 times per day [Active]; aa5 - PMHx: 14:36 Atrial Fib; Diabetes - NIDDM; DVT; pulmonary embolus; aa5 - Immunization history:: Adult Immunizations unknown. - Social history:: Smoking status: Patient denies any tobacco usage or history of. - Family history:: not pertinent. Screenin:40 [facility] ED Fall Risk Assessment (Adult) History of falling in the last 3 months, aa5 including since admission No falls in past 3 months (0 pts) Confusion or Disorientation No (0 pts) Intoxicated or Sedated No (0 pts) Impaired Gait No (0 pts) Mobility Assist Device Used No (0 pt) Altered Elimination No (0 pt) Score/Fall Risk Level 0 - 2 = Low Risk Oriented to surroundings, Maintained a safe environment, Educated pt \T\ family on fall prevention, incl call for assistance when getting out of bed. Abuse screen: Denies threats or abuse. Nutritional screening: No deficits noted. Tuberculosis screening: No symptoms or risk factors identified. Assessment: 14:36 General: Appears comfortable, Behavior is calm, cooperative. Pain: Denies pain. Neuro: aa5 Level of Consciousness is awake, alert, obeys commands, Oriented to person, place, time, situation. Cardiovascular: Heart tones S1 S2 present Rhythm is sinus rhythm. Respiratory: Airway is patent Respiratory effort is even, unlabored, Respiratory pattern is regular, symmetrical. GI: Abdomen is round non-distended, Bowel sounds present X 4 quads. Abd is soft and non tender X 4 quads. : No signs and/or symptoms were reported regarding the genitourinary system. EENT: No signs and/or symptoms were reported regarding the EENT system. Derm: Skin is pink, warm \T\ dry. Musculoskeletal: Range of motion: intact in all extremities. 14:36 Reassessment: Patient states feeling better. Patient states symptoms have improved. aa5 15:50 Reassessment: Patient is alert, oriented x 3, equal unlabored respirations, skin aa5 warm/dry/pink. Patient denies pain at this time. Vital Signs: 14:30 BP 130 / 71; Pulse 99; Resp 13 S; Temp 98.3(O); Pulse Ox 94% on R/A; Weight 75.5 kg aa5 (M); Height 5 ft. 9 in. (R); 14:30 Body Mass Index 24.58 (75.50 kg, 175.26 cm) aa5 ED Course: 14:30 Arm band placed on. aa5 14:30 Patient has correct armband on for positive identification. Placed in gown. Bed in low aa5 position. Call light in reach. Side rails up X2. Client placed on continuous cardiac and pulse oximetry monitoring. NIBP monitoring applied. 14:31 Patient arrived in ED. ph 14:32 Cathryn Dean RN is Primary Nurse. aa5 14:33 Dom Kiser MD is Attending Physician. cp3 14:34 Oxygen administration via nasal cannula \T\ 2L/min. aa5 14:35 Triage completed. aa5 14:37 Inserted saline lock: 18 gauge in right antecubital area, using aseptic technique. mb9 Blood collected. 15:34 XRAY Chest (1 view) In Process Unspecified. EDMS 15:38 Anderson Jamison MD is Referral Physician. cp3 15:50 No provider procedures requiring assistance completed. IV discontinued, intact, aa5 bleeding controlled, No redness/swelling at site. Pressure dressing applied. Administered Medications: No medications were administered Medication: 14:55 VIS not applicable for this client. aa5 Outcome: 15:39 Discharge ordered by MD. cp3 15:50 Discharged to home ambulatory, with significant other, aa5 15:50 Condition: stable 15:50 Discharge instructions given to patient, significant other, Instructed on discharge instructions, follow up and referral plans. Demonstrated understanding of instructions, follow-up care, 15:54 Patient left the ED. aa5 Signatures: Dispatcher [employer] [facility] Dom Kiser MD MD cp3 Cathryn Dean, RN RN aa5 Rena Bui, RN RN Radha Vaughan, RN RN mb9 Corrections: (The following items were deleted from the chart) 14:45 14:36 Home Meds: selenium 200 mcg Oral cap; aa5 aa5 14:45 14:36 Home Meds: metformin 1 Oral tab 2 times per day; aa5 aa5
--- NOTE | 2023-05-11 15:42 | RAD REPORT ---
EXAM DESCRIPTION: RADChest Single View05/11/2023 3:32 pm CLINICAL HISTORY: CHEST PAIN COMPARISON: Chest Single View dated 08/22/2020; Chest Single View dated 06/26/2017; Chest Single View dated 10/27/2015; CHEST SINGLE VIEW dated 06/26/2015 TECHNIQUE: Portable AP view of the chest. FINDINGS: Left basilar mild streaky opacities, stable compared to the most recent prior exam but kim ears somewhat progressive compared to the 06/26/2017 exam, favoring atelectasis or scarring. No pneu mothorax or effusion. The cardiomediastinal contours are unremarkable. IMPRESSION: No acute cardiopulmonary process. Probable left basilar atelectasis or scarring as abov e.
[2023-05-11 16:35] VITALS: BP 130/71; TEMP 98.3; O2SAT 94
--- NOTE | 2023-05-13 13:53 | EKG ---
Test Date: 2023-05-11 Test Time: 14:41:46 Tactical Response Group Officer: JOSE MEASUREMENT RESULTS: Intervals: Rate: 98 SD: 130 QRSD: 76 QT: 362 QTc: 462 Justin: P: 72 SD: 130 QRS: 69 T: 86 INTERPRETIVE STATEMENTS: Normal sinus rhythm Normal ECG Compared to ECG 08/22/2020 10:30:41 No significant changes Electronically Signed On 05-13-23 13:50:39 CDT by Anderson Jamison
== END 2023-05-11 15:54 | disposition home or self-care (01) ==
LOC: ER 14:29
DX: R07.89 Other chest pain (principal); I48.0 Paroxysmal atrial fibrillation; Z79.01 Long term (current) use of anticoagulants; R00.2 Palpitations; R55 Syncope and collapse; E11.9 Type 2 diabetes mellitus without complications
CPT/HCPCS: 36415; 71045; 80048; 84484; 85025; 93005; 99284

== ENCOUNTER 2023-05-13 10:31 | Observation (INO) | payer OTHER ==
[2012-04-10 17:37] VITALS: BP 106/70
--- OUTSIDE RECORDS SUMMARY | 2023-05-13 10:34 | XMS REPORT | Continuity of Care Document ---
:1950 Author Organization [facility] t Address [address] [place] [address] [place] [id number] Care Team Providers Name Role Phone Matthew Cohen DO Primary Care Physician JULIETH BETANCOURT Attending Clinician Unavailable BALJEET MONDRAGON Attending Clinician Unavailable Doctor Unassigned, [place] Attending Clinician Unavailable Julieth Betancourt MD Attending Clinician Only, Adc Test Attending Clinician Unavailable JOSELITO PALUMBO Attending Clinician Unavailable SHREE ROMO Attending Clinician Unavailable BA, ABRAM Attending Clinician Unavailable JULIETH BETANCOURT Admitting Clinician Unavailable Julieth Betancourt MD Admitting Clinician JOSELITO PALUMBO Admitting Clinician Unavailable Payers Payer Name Policy Type Policy Number Effective Date Expiration Date S chad MEDICARE PART A [id number] 2016 \T\ B 00:00:00 [employer] INDEMNITY [id number] 2021 00:00:00 Problems This patient has no known problems. Allergies, Adverse Reactions, Alerts Allergy Allergy Status Severity Reaction(s) Onset Inactive Treating Comm ents Source Name Type Date Date Clinician NO KNOWN Drug Active Univers ALLERGIE Class ity [facility] [place] Social History Social Habit Start Date Stop Date Quantity Comments Source Exposure to Not sure [facility] SARS-CoV-2 (event) Medica l Branch Tobacco use and 2021-07-06 2021-07-06 Never used [facility] exposure 00:00:00 00:00:00 Medical Branch Sex Ass[birth year] At [birth year] [facility] [place] 00:00:00 00:00:00 Medical Branch Smoking Status Start Date Stop Date Source Never smoker [facility] Medications Ordered Filled Start Stop Current Ordering Indication Dosage Frequency Signature Comments Components Source Medication Medication Date Date Medication? Clinician (SIG) Name Name gentamicin Yes PRN, Univers injection 2-10 Starting ity of 14:29: on [facility] 09/01/[address] Until Discontinu ed, CHRISTIANE, Intra-op NaCl 0.9% Yes PRN, Univers (NS) 2-10 Starting ity of injection 14:29: on [facility] 09/01/[address] Until Discontinu ed, Routine, Intra-op neomycin-po Yes PRN, Univer s lymyxin-dex - Starting ity of amethasone 14:29: on [facility] (MAXITROL) 00 09/01/21 at [facility] ical [address] [place] [address] mg/g-10,000 Until unit/g-0.1 Discontinu % ed, ophthalmic Routine, ointment Intra-op gentamicin 2021- No PRN, Univer s injection 09-01 Starting ity o f 14:29: 18:32 on [facility] 00 :15 09/01/[address] Until [place] 09/01/21 at 1232, CHRISTIANE, Intra-op NaCl 0.9% 2021- No PRN, Univers (NS) -04 23-10 Starting ity of injection 14:29: 18:32 on [facility] 00 :15 09/01/[address] Until [place] 09/01/21 at 1232, Routine, Intra-op neomycin-po 2021- No PRN, Unive rs lymyxin-dex 2-04 23- Starting ity of amethasone 14:29: 18:[address] [facility] 00 :15 09/01/21 at Med ical [address] [place] [address] mg/g-10,000 Until [place] unit/g-0.1 09/01/21 at % 1232, ophthalmic Routine, ointment Intra-op dexamethaso Yes PRN, Univer s ne -10 Starting ity of (DECADRON 14:28: on [place] PHOSPHATE) 00 09/01/21 at Med ical injection [address] [place] [address] Until Discontinu ed, Routine, Intra-op ceFAZolin Yes PRN, Univers (ANCEF) 10 Starting ity of injection 14:28: on [place] 00 09/01/21 at Medical [address] [place] [address] Until Discontinu ed, CHRISTIANE, Intra-op dexamethaso 2021-0 2021- No PRN, Unive rs ne 09-01 Starting ity of (DECADRON 14:28: 18:32 on [facility] [place] PHOSPHATE) 00 :15 09/01/21 at Med ical injection [address] [place] [address] Until [place] 09/01/21 at 1232, Routine, Intra-op ceFAZolin 2021- No PRN, Univers (ANCEF) 09-01 Starting ity of injection 14:28: 18:32 on [place] 00 :15 09/01/21 at Medical [facility] [place] Until [place] 09/01/21 at 1232, CHRISTIANE, Intra-op [...] on [place] mg/mL) 00 2/10/22 at [facility] (ADRENALIN 0819, Branch (PF)) Until injection Discontinu ed, Routine, Intra-op EPINEPHrine 2021- No PRN, Unive rs (PF) 2-04 23-10 Starting ity of 1:1,000 (1 14:19: 18:32 [place] mg/mL) 00 :15 09/01/21 at [facility] (ADRENALIN 0819, Branch (PF)) Until [place] injection 09/01/21 at 1232, Routine, Intra-op balanced Yes PRN, Univers salt soln 2-10 Starting ity of no.2 irrig. 14:17: on [facility] [place] (BSS) 00 09/01/21 at [facility] ophthalmic [facility] [place] solution Until Discontinu ed, Routine, Intra-op balanced 2021- No PRN, Univers salt soln 2-04 23-10 Starting ity o f no.2 irrig. 14:17: 18:32 on [facility] [place] (BSS) 00 :15 09/01/21 at [place] [address], Branch solution Until [place] 09/01/21 at 1232, Routine, Intra-op water for Yes PRN, Univers irrigation 2-10 Starting ity o f irrigation 14:13: on [facility] [place] solution 00 09/01/21 at [facility] 08, Branch Until Discontinu ed, Routine, Intra-op water for 2021- No PRN, Univers irrigation 2-10 -10 Starting ity of irrigation 14:13: 18:32 on [facility] [place] solution 00 :15 09/01/21 at [facility] 0813, Branch Until [place] 09/01/21 at 1232, Routine, Intra-op tetracaine Yes PRN, Univers (PONTOCAINE 2-10 Starting ity of ) 0.5 % 14:11: on [facility] ophthalmic 00 09/01/21 at [facility] ical drops 08, Branch Until Discontinu ed, Routine, Intra-op eye block Yes PRN, Univers syringe 11 2-10 Starting ity o f mL 14:11: on [facility] [place] 00 09/01/21 at [facility] 08, Branch Until Discontinu ed, Intra-op tetracaine 2021- No PRN, Univer s (PONTOCAINE 09-01 Starting ity of ) 0.5 % 14:11: 18:32 on [place] ophthalmic 00 :15 09/01/21 at [facility] ical drops 0811, Branch Until [place] 09/01/21 at 1232, Routine, Intra-op eye block 2021- No PRN, Univers syringe 11 09-01 Starting ity of mL 14:11: 18:32 on [place] 00 :15 09/01/21 at Medical 0811, Branch Until [place] 09/01/21 at 1232, Intra-op cyclopent 2021- No .5mL 0.5 mL, Univ ers 1%-tropic 09-01 Right Eye, ity of 1%-phenyl 12:30: 12:37 ONCE, 1 [place] 2.5%-ketor 00 :00 dose, On Medic al 0.5% [facility] Branch (MYDRIATIC 09/01/21 at #5) 0630, ophthalmic [...] mouth 2 [place] 11 (two) Medical times [place] daily with meals. rivaroxaban 2022-0 Yes 15mg [...] mouth 2 [place] 11 (two) Medical times [place] daily with meals. rivaroxaban 2022-0 Yes 15mg [...] by ity of tablet 10:10: mouth 2 [place] 18 (two) Medical times [place] daily with meals. rivaroxaban 2022-0 Yes 15mg Take 15 mg Univers (XARELTO) 1-10 by mouth 2 ity of 15 mg 10:10: (two) [place] tablet 18 times Medical daily. Branch sotaloL 80 2021-0 Yes 80mg Take 80 mg U nivers mg tablet 1-10 by mouth ity of 10:10: every 12 [place] 18 (twelve) Medical hours. Branch metFORMIN 2021-0 Yes 1000mg Take 1,000 Univers 1,000 mg 1-10 mg by ity of tablet 10:10: mouth 2 [place] 18 (two) Medical times [place] daily with meals. rivaroxaban 2021-0 Yes 15mg Take 15 mg Univers (XARELTO) 1-10 by mouth 2 ity of 15 mg 10:10: (two) [place] tablet 18 times Medical daily. Branch sotaloL 80 2021-0 Yes 80mg Take 80 mg U nivers mg tablet 1-10 by mouth ity of 10:10: every 12 [place] [address] (twelve) Medical hours. Branch metFORMIN 2021-0 Yes 1000mg Take 1,000 Univers 1,000 mg 1-10 mg by ity of tablet 10:10: mouth 2 [place] 18 (two) Medical times [place] daily with meals. Vital Signs Vital Name Observation Time Observation Value Comments Source Oxygen saturation in 2021-09-01 15:21:00 97 /min [facility] Arterial blood by [facility] Pulse oximetry Branch Heart rate 2021-09-01 15:21:00 63 /min [facility] Respiratory rate 2021-09-01 15:21:00 25 /min [facility] Systolic blood 2021-09-01 15:19:00 98 mm[Hg] Univer sity [facility] Diastolic blood 2021-09-01 15:19:00 55 mm[Hg] Unive [facility] Body temperature 2021-09-01 14:39:00 36.28 [facility] Body height 2021-08-18 17:11:00 175.3 cm [facility] Body weight 2021-08-18 17:11:00 94.3 kg [facility] BMI 2021-08-18 17:11:00 30.69 kg/m2 [facility] Systolic blood 2021-09-01 12:36:00 132 mm[Hg] Univer sity of [facility] Diastolic blood 2021-09-01 12:36:00 59 mm[Hg] [facility]ive [facility] pressure [facility] [place] [facility] Heart rate 2021-09-01 12:36:00 69 /min [facility] Body temperature 2021-09-01 12:36:00 36.72 [place]ie [facility] Res[facility] rate 2021-09-01 12:36:00 17 /min [facility] Oxygen saturation in 2021-09-01 12:36:00 98 /min [facility] Arterial blood by [facility] Pulse oximetry [place] Body height 2021-08-18 17:11:00 175.3 cm [facility] Body weight 2021-08-18 17:11:00 94.3 kg [facility] BMI 2021-08-18 17:11:00 30.69 kg/m2 [facility] Procedures Procedure Date / Time Performing Source Performed Clinician PATIENT QUESTIONNAIRE 2021-09-14 Doctor Unassigned, [facility] 06:01:00 [place] [facility] PHACOEMULSIFICATION OF 2021-09-01 Julieth Betancourt [facility] CATARACT WITH INTRAOCULAR 13:55:00 [place] Vincent Dora LENS IMPLANT POCT GLUCOSE (AUTOMATED) 2021-09-01 Julieth Betancourt [facility] 12:46:00 [facility] POCT GLUCOSE (AUTOMATED) 2021-09-01 Serafin [facility] 12:46:00 [facility] ASSIGNMENT OF BENEFITS 2021-08-30 Doctor Unassigned, [facility] 14:17:01 [place] [facility] Encounters Start End Encounter Admission Attending Care Care Encounter Source Date/Time Date/Time Type Type Clinicians Facility Department ID 2021-08-03 Outpatient Han BETANCOURT [facility] OPH [id number] [facility] 09:43:07 [facility] [place] 2021-08-03 Outpatient Han BETANCOURT [facility] OPH [id number] Univers 08:58:14 JULIETH dennison [facility] 2023-01-11 2023-01-11 Outpatient GAUTAM MONDRAGON [facility] [id number] [place] 09:15:00 09:15:00 GILBERT -[id number] [facility] 2021-09-14 2021-09-14 Orders Doctor PALACIO 1.2.840.114 [id number] Univers 00:00:00 00:00:00 Only Unassigned, BRANDO 350.1.13.10 ity of [place] [facility] 4.2.7.2.686 [place] [id number] [facility] 009 Branch 2021-09-01 2021-09-01 [facility] [id number] Univers 06:27:00 09:40:00 JULIETH dennison [facility] 2021-09-01 2021-09-01 [facility] [id number] Univers 06:27:00 09:40:00 Encounter Julieth WELLS 350.1.13.10 ity of [place] SUR[place]ICAL [id number] [facility] 071 Branch 2021-09-01 2021-09-01 Surgery [facility] [id number] Univers 07:30:00 08:05:00 Julieth WELLS 350.1.13.10 i ty of [place] [id number] [facility] 020 Branch 2021-08-30 2021-08-30 Laboratory Only, Adc Test [facility] 1.2.840. 114 [id number] Univers 08:15:00 08:30:00 Only Julieth Betancourt 350.1.1 3.10 ity [place].2.[place] CAMPUS [id number] [facility] 353 Branch 2021-08-30 2021-08-30 Outpatient Han BETANCOURT [facility] [id number] Univers 08:15:00 08:15:00 JULIETH dennison [facility] 2021-08-30 2021-08-30 Orders Doctor HAKEEM 1.2.840.114 [id number] Univers 00:00:00 00:00:00 Only Unassigned, BRANDO 350.1.13.10 ity of [place] [facility] 4.2.7.2.686 [place] [id number] [address] 2021-08-03 2021-08-03 Laboratory Only, Adc Test [facility] 1.2.840. 114 [id number] Univers 09:15:00 09:30:00 Only Julieth Betancourt 350.1.1 3.10 ity of [place] 4.2.7.2.686 [facility] [id number] [place] [address] Branch 2021-08-03 2021-08-03 Outpatient Han BETANCOURT [facility] [id number] Univers 09:15:00 09:15:00 JULIETH dennison [facility] 2021-08-03 2021-08-03 Orders Doctor HAKEEM 1.2.840.114 [id number] Univers 00:00:00 00:00:00 Only Unassigned, BRANDO 350.1.13.10 ity of [place] [facility] 4.2.7.2.686 [place] [id number] [address] 2019-05-22 2019-05-22 Outpatient GAUTAM MIRZAMAY [facility] [id number] [place] 15:20:00 15:20:00 BALJEET [id number] [facility] 2015-07-01 2015-07-01 Outpatient GAUTAM MIRZAMAY [facility] [id number] [place] 09:58:00 09:58:00 BALJEET [id number] [facility] 2015-06-26 2015-06-27 Inpatient ER LINWOOD, [facility] MED [id number] [place] 22:58:00 16:25:00 JOSELITO [id number] [facility] 2014-07-02 2014-07-02 Outpatient GAUTAM MIRZAMAY [facility] [id number] [place] 15:45:00 15:45:00 BALJEET [id number] [facility] 2013-11-14 2013-11-14 Outpatient GAUTAM ROMO [facility] [id number] [place] 08:30:00 08:30:00 SHREE [id number] [facility] 2013-10-16 2013-10-16 Outpatient GAUTAM MONDRAGON [facility] [id number] [place] 10:44:00 10:44:00 [id number] [facility] 2013-04-17 2013-04-17 Outpatient GAUTAM MONDRAGON [facility] [id number] [place] 11:34:00 11:34:00 [id number] [facility] 2011-10-26 2011-10-26 Outpatient GAUTAM MONDRAGON [facility] [id number] [place] 10:02:00 10:02:00 [id number] [facility] 2010-08-12 2010-08-12 Outpatient GAUTAM MONDRAGON [facility] [id number] [place] 11:37:00 11:37:00 [id number] [facility] 2009-08-06 2009-08-06 Outpatient GAUTAM MONDRAGON [facility] [id number] [place] 10:28:00 10:28:00 [id number] [facility] 2008-07-21 2008-07-21 Outpatient GAUTAM MONDRAGON [facility] [id number] [place] 15:21:00 15:21:00 [id number] [facility] 2006-11-09 2006-11-09 Outpatient GAUTAM MONDRAGON [facility] [id number] [place] 09:13:00 09:13:00 [id number] [facility] 2005-10-27 2005-10-27 Outpatient GAUTAM MONDRAGON [facility] [id number] [place] 10:33:00 10:33:00 [id number] [facility] 2004-07-19 2004-07-19 Emergency ER BA, ABRAM [facility] [id number] [place] 00:47:00 03:40:00 [id number] [facility] Results Test Description Test Time Test Comments Results Result Comments Source POCT GLUCOSE (AUTOMATED) 2021-09-01 12:50:30 Test Item Value Reference Range Interpretation Comme nts POCT GLU (test code = [id number]) 174 mg/dL 70-110 H Lab Interpretation (test code = 43892-2) [facility] 12:50:30 Test Item Value Reference Range Interpretation Comments POCT GLU (test code = [id number]) 174 mg/dL 70-110 H Lab Interpretation (test code = Abnormal 62805-0) [facility]
[2023-05-13] MEDS ORDERED: MAGNESIUM SULFATE 1 gm IVPB 1 GM/100 ML BAG IV ONE (11:04)
[2023-05-13 11:12] LABS: Absolute Lymphocytes (CBC) 1.8 K/uL (0.7-4.9); Hematocrit 42.7 % (39.6-49.0); Lymphocytes % 28.5 % (15.3-44.8); MPV 7.1 fL (7.6-11.3); Platelets 207 thou/uL (152-406); RBC Red Blood Cell Count 4.65 M/uL (4.33-5.43)
[2023-05-13 11:13] LABS: Protime INR 1.17
[2023-05-13 11:27] LABS: Potassium 4.4 mEq/L (3.5-5.1); Troponin High Sensitivity 4.8 pg/mL (<58.9)
--- NOTE | 2023-05-13 11:55 | RAD REPORT ---
EXAM DESCRIPTION: CT - Chest For Pe Angio - 05/13/2023 11:39 am CLINICAL HISTORY: CHEST PAIN COMPARISON: Chest Abdomen W Con dated 05/04/2016 TECHNIQUE: Dynamically enhanced axial 3 mm thick images of the chest were obtained during administra tion of <100> mL Isovue 370 IV contrast. Coronal and oblique reconstruction images were generated and reviewed. Exam utilizes a protocol for optimal evaluation of pulmonary arterial tree. Maximum intensity projections 3D imaging was utilized All CT scans are performed using dose optimization technique as appropriate and may include automated exposure control or mA/KV adjustment according to patient size. FINDINGS: Chest Wall: No suspicious thyroid nodules or pathologic lymphadenopathy. Lungs: No acute abnormality. Paraseptal emphysema. Pleura: No significant effusions or pneumothorax. Mediastinum/massimo: No pathologic lymphadenopathy. Pulmonary arteries/Aorta: Pulmonary embolus at the right distal pulmonary artery and a right upper se gmental pulmonary artery. This is nearly occlusive. The defect in the right distal pulmonary artery i s thin and linear. No aortic aneurysm. Heart: No significant pericardial effusion. Normal heart size. Upper abdomen: No acute abnormality. Bones: No acute abnormality. IMPRESSION: Positive for pulmonary embolism with low clot burden. Though there is thrombus in the ri ght main pulmonary artery, most of the clot is in a right upper lobe segmental artery. Communicated to Dr. Real by Dr. Bryant at 1150 on 05/13/23.
--- NOTE | 2023-05-13 11:56 | RAD REPORT ---
EXAM DESCRIPTION: CT - Head Brain Wo Cont - 05/13/2023 11:39 am CLINICAL HISTORY: dizzy COMPARISON: Head Brain Wo Cont dated 08/22/2020; HEAD BRAIN W O CONTRAST dated 11/19/2011 TECHNIQUE: All CT scans are performed using dose optimization technique as appropriate and may inclu de automated exposure control or mA/KV adjustment according to patient size. FINDINGS: No intracranial hemorrhage, hydrocephalus or extra-axial fluid collection.No areas of brai n edema or evidence of midline shift. The paranasal sinuses and mastoids are clear. The calvarium is intact. IMPRESSION: No acute intracranial abnormality.
--- NOTE | 2023-05-13 12:02 | RAD REPORT ---
EXAM DESCRIPTION: RAD - Chest Single View - 05/13/2023 11:30 am CLINICAL HISTORY: CHEST PAIN COMPARISON: Chest Single View dated 05/11/2023; Chest Single View dated 08/22/2020; Chest Single View dated 06/26/2017; Chest Single View dated 10/27/2015 FINDINGS: Lines: None. Lungs: No evidence of edema or pneumonia. Pleural: No significant pleural effusions or pneumothorax. Cardiac: The heart size is within normal limits. Mediastinum: Within normal limits. Bones: No acute fractures. Other: None IMPRESSION: No acute cardiopulmonary disease.
--- NOTE | 2023-05-13 12:53 | RAD REPORT ---
EXAM DESCRIPTION: US - Extrem Venous W Compress Espinoza - 05/13/2023 12:47 pm CLINICAL HISTORY: eval for DVT COMPARISON: No comparisons TECHNIQUE: Real-time sonographic evaluation of the lower extremity deep venous systems was performed using color Doppler, grayscale, and compression. FINDINGS: Bilateral lower extremities. Normal compressibility, flow augmentation, phasic flow and spontaneous flow is identified in both the left and right lower extremity deep venous systems. No intraluminal filling defects seen. IMPRESSION: No DVT in either lower extremity.
--- NOTE | 2023-05-13 13:39 | EDPHYS ---
Physician Documentation [facility] Name: Zeus Mcknight Age: 73 yrs Sex: Male : 1950 Arrival Date: 05/13/2023 Time: 10:31 Bed 6 Private MD: ED Physician Arturo Real HPI: 05/13 11:17 This 73 yrs old Male presents to ER via EMS with complaints of Chest Pain. rn 11:17 The patient or guardian reports chest pain that is located primarily in the substernal rn area. Onset: 3 day(s) ago. The pain does not radiate. Associated signs and symptoms: Pertinent positives: lightheadedness, palpitations, Pertinent negatives: abdominal pain, cough, lower extremity swelling, syncope. The chest pain is described as aching. Duration: The patient or guardian reports multiple episodes, that are intermittent. Modifying factors: The symptoms are alleviated by rest, the symptoms are aggravated by exertion. Severity of pain: At its worst the pain was mild in the emergency department the pain has improved. The patient has experienced a previous episode. The patient has been recently seen at the [facility] Emergency Department. Patient reports chest pain and dizziness associated with palpitations since Sunday. Seen here on Sunday and discharged. 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 Reports symptoms are worse with exertion, especially at the dizziness and fogginess that he reports. No shortness of breath. No trauma. States compliant with medication. Takes an extra sotalol when A-fib feels fast.. Historical: - Allergies: 10:46 No Known Allergies; iw - Home Meds: 10:45 metformin 1 Oral tab 2 times per day [Active]; sotalol 80 mg Oral tab 2 times per day iw for Prevention of Recurrent Atrial Fibrillation [Active]; Xarelto 15 mg Oral tab daily [Active]; - PMHx: 10:45 Atrial Fib; Diabetes - NIDDM; DVT; pulmonary embolus; iw - Immunization history:: Adult Immunizations up to date. - Family history:: not pertinent. - Social history:: Smoking status: Patient denies any tobacco usage or history of. - Hospitalizations: : No recent hospitalization is reported. ROS: 11:19 Constitutional: Negative for fever, chills, and weight loss, Eyes: Negative for injury, rn pain, redness, and discharge, Neck: Negative for injury, pain, and swelling, Cardiovascular: Positive for chest pain and palpitations Respiratory: Negative for shortness of breath, cough, wheezing, and pleuritic chest pain, Abdomen/GI: Negative for abdominal pain, nausea, vomiting, diarrhea, and constipation, Back: Negative for injury and pain, MS/Extremity: Negative for injury and deformity, Skin: Negative for injury, rash, and discoloration, Neuro: Positive for generalized weakness Exam: 11:19 Constitutional: This is a well developed, well nourished patient who is awake, alert, rn and in no acute distress. Head/Face: Normocephalic, atraumatic. Eyes: Pupils equal round and reactive to light, extra-ocular motions intact. Cardiovascular: Slight tachycardia with irregular rhythm. No pulse deficits. Respiratory: No increased work of breathing, no retractions or nasal flaring. Abdomen/GI: Soft, non-tender Skin: Warm, dry MS/ Extremity: Pulses equal, no cyanosis. Neuro: Awake and alert, GCS 15, oriented to person, place, time, and situation. Cranial nerves II-XII grossly intact. Motor strength 5/5 in all extremities. Sensory grossly intact. Cerebellar exam normal. 18:02 ECG was reviewed by the Attending Physician. rn Vital Signs: 10:44 BP 141 / 82; Pulse 102; Resp 18; Temp 98.3(O); Pulse Ox 97% on R/A; iw 12:04 BP 126 / 74; Pulse 78; Resp 19; Temp 97.9(O); Pulse Ox 97% on R/A; iw 13:59 Weight 93.89 kg (R); hb 19:32 BP 138 / 87; Pulse 115; Resp 20; Temp 98.3; Pulse Ox 96% on R/A; Pain 0/10; la4 19:32 Pain Scale: Adult la4 [place] Coma Score: 19:32 Eye Response: spontaneous(4). Motor Response: obeys commands(6). Verbal Response: la4 oriented(5). Total: 15. Trauma Score (Adult): 19:32 Eye Response: spontaneous(1); Verbal Response: oriented(1); Motor Response: obeys la4 commands(2); Systolic BP: > 89 mm Hg(4); Respiratory Rate: 10 to 29 per min(4); [place] Score: 15; Trauma Score: 12 MDM: 10:42 Patient medically screened. 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 Enrique for rn recommendation, called number given and no answer.. 13:37 Differential diagnosis: chest wall pain, congestive heart failure costochondritis, rn pleurisy, pneumonia, pneumothorax, pulmonary embolus. Data reviewed: vital signs, nurses notes, lab test result(s), EKG, radiologic studies, CT scan, ultrasound, and as a result, I will admit patient. Consideration of Admission/Observation Patient was admitted/placed on observation. Escalation of care including admission/observation considered. Counseling: I had a detailed discussion with the patient and/or guardian regarding the historical points, exam findings, and any diagnostic results supporting the discharge/admit diagnosis, lab results, radiology results, the need for further work-up and treatment in the hospital. 13:37 ED course: CT shows small amount of clot burden in right pulmonary artery but majority rn of clot burden in the right upper lung. No oxygen requirement. No chest pain. Troponin is negative. Will admit for further evaluation and care. Currently patient on 15 mg of Xarelto, may need medication change or increase in Xarelto to 20 mg.. 05/13 10:43 Order name: Basic Metabolic Panel; Complete Time: 11:39 rn 05/13 10:43 Order name: CBC with Diff; Complete Time: 11:39 rn 05/13 10:43 Order name: Magnesium; Complete Time: 11:39 rn 05/13 10:43 Order name: NT PRO-BNP; Complete Time: 11:39 rn 05/13 10:43 Order name: PT-INR; Complete Time: 11:39 rn 05/13 10:43 Order name: Troponin HS; Complete Time: 11:39 rn 05/13 14:48 Order name: Ptt, Activated; Complete Time: 15:16 iw 05/13 15:19 Order name: CBC with Automated Diff EDMS 05/13 15:19 Order name: CBC with Automated Diff EDMS 05/13 15:19 Order name: Comprehensive Metabolic Panel EDMS 05/13 15:19 Order name: Comprehensive Metabolic Panel EDMS 05/13 15:20 Order name: D-Dimer EDMS 05/13 15:20 Order name: D-Dimer EDMS 05/13 15:20 Order name: PTT, Activated Partial Thromb EDMS 05/13 15:20 Order name: PTT, Activated Partial Thromb EDMS 05/13 15:20 Order name: PTT, Activated Partial Thromb EDMS 05/13 15:20 Order name: PTT, Activated Partial Thromb EDMS 05/13 15:20 Order name: PTT, Activated Partial Thromb EDMS 05/13 15:20 Order name: PTT, Activated Partial Thromb EDMS 05/13 15:20 Order name: PTT, Activated Partial Thromb EDMS 05/13 10:43 Order name: XRAY Chest (1 view); Complete Time: 12:05 rn 05/13 10:43 Order name: CT Chest For PE Angio; Complete Time: 12:05 rn 05/13 10:44 Order name: CT Head Brain wo Cont; Complete Time: 12:05 rn 05/13 12:19 Order name: Extrem Venous W Compression Espinoza US; Complete Time: 12:54 rn 05/13 15:20 Order name: Echo with Doppler EDWY 05/13 10:43 Order name: EKG; Complete Time: 10:43 rn 05/13 15:19 Order name: CONS Physician Consult EDWY 05/13 10:43 Order name: Cardiac monitoring; Complete Time: 10:47 rn 05/13 10:43 Order name: EKG - Nurse/Tech; Complete Time: 10:47 rn 05/13 10:43 Order name: IV Saline Lock; Complete Time: 10:50 rn 05/13 10:43 Order name: Labs collected and sent; Complete Time: 10:50 rn 05/13 10:43 Order name: O2 Per Protocol; Complete Time: 10:47 rn 05/13 10:43 Order name: O2 Sat Monitoring; Complete Time: 10:47 rn EC:02 Rate is 115 beats/min. Rhythm is irregular. QRS [place] is Normal. [place] interval is normal. rn QRS interval is normal. QT interval is normal. No Q waves. T waves are Normal. No ST changes noted. Clinical impression: Sinus tachycardia and PACs. Interpreted by me. Reviewed by me. Administered Medications: 11:00 Drug: Magnesium Sulfate IVPB 1 grams IVPB once over 1 hrs Route: IVPB; Infused Over: 1 iw hrs; Site: left antecubital; 12:00 Follow up: IV Status: Completed infusion iw 14:06 Drug: Heparin (DVT/PE Drip) 18 units/kg/hr - ([place] [address] units, D5W IV 500 ml) IV iw at calculated rate Per protocol; Max initial rate 1800 units/hr {Co-Signature: ld1 (Nanci Watkins RN).} Route: IV; Rate: calculated rate; Site: left antecubital; 17:09 Follow up: IV Status: Infusion continued upon admission iw Disposition Summary: 05/13/23 13:39 Hospitalization Ordered Notes: Hospitalization Status: Inpatient Admission rn Provider: Brett Schmitz rn Location: Telemetry/MedSurg (Inpatient) rn Condition: Stable rn Problem: new rn Symptoms: have improved rn Bed/Room Type: Standard rn Room Assignment: 410(05/13/23 19:02) mw Diagnosis - Pulmonary embolism without acute cor pulmonale rn - Paroxysmal atrial fibrillation rn Forms: - Medication Reconciliation Form rn - SBAR form rn - Leadership Thank You Letter rn Signatures: Dispatcher [employer] Sepideh Collins RN RN Stacey Allen RN RN iw Nieto, Roman, MD MD rn Andrews, La'Rea, RN RN la4 Sims, Lauren RN ld1 Corrections: (The following items were deleted from the chart) 19:02 13:39 rn autumn
--- NOTE | 2023-05-13 13:39 | ER ---
Nurse's Notes [facility] Name: Zeus Mcknight Age: 73 yrs Sex: Male : 1950 Arrival Date: 05/13/2023 Time: 10:31 Bed 6 Private MD: Diagnosis: Pulmonary embolism without acute cor pulmonale;Paroxysmal atrial fibrillation Presentation: 05/13 10:44 Chief complaint: EMS states: c/o chest pain, dizziness, general weakness , was seen iw here Sunday sent home and was feeling better until this morning, hx of Afib , DVT, PE. Coronavirus screen: At this time, the client does not indicate any symptoms associated with coronavirus-19. Ebola Screen: Patient negative for fever greater than or equal to 101.5 degrees Fahrenheit, and additional compatible Ebola Virus Disease symptoms Patient denies exposure to infectious person. Patient denies travel to an Ebola-affected area in the 21 days before illness onset. No symptoms or risks identified at this time. Initial Sepsis Screen: Does the patient meet any 2 criteria? No. Patient's initial sepsis screen is negative. Does the patient have a suspected source of infection? No. Patient's initial sepsis screen is negative. Risk Assessment: Do you want to hurt yourself or someone else? Patient reports no desire to harm self or others. Onset of symptoms was May 13, 2023. 10:44 Method Of Arrival: EMS: [facility] iw 10:44 Acuity: HARLEEN 3 iw 10:59 Care prior to arrival: Glucose check: 263. iw Historical: - Allergies: 10:46 No Known Allergies; iw - Home Meds: 10:45 metformin 1 Oral tab 2 times per day [Active]; sotalol 80 mg Oral tab 2 times per day iw for Prevention of Recurrent Atrial Fibrillation [Active]; Xarelto 15 mg Oral tab daily [Active]; - PMHx: 10:45 Atrial Fib; Diabetes - NIDDM; DVT; pulmonary embolus; iw - Immunization history:: Adult Immunizations up to date. - Family history:: not pertinent. - Social history:: Smoking status: Patient denies any tobacco usage or history of. - Hospitalizations: : No recent hospitalization is reported. Screenin:00 [facility] ED Fall Risk Assessment (Adult) Score/Fall Risk Level 0 - 2 = Low Risk. Abuse iw screen: Denies threats or abuse. Denies injuries from another. Nutritional screening: No deficits noted. Tuberculosis screening: No symptoms or risk factors identified. Assessment: 10:59 General: Appears in no apparent distress. Behavior is calm, cooperative. Pain: iw Complains of pain in diaphragm and mid-sternal area. Pain: Pain does not radiate. Pain began 2-3 days ago. Neuro: Level of Consciousness is awake, alert, obeys commands, Oriented to person, place, time, situation, Moves all extremities. Full function. Cardiovascular: Reports chest pain, shortness of breath, Patient's skin is warm and dry. Rhythm is irregular. Respiratory: Respiratory effort is even, unlabored, Respiratory pattern is regular, symmetrical. GI: Abdomen is non-distended. 12:03 Reassessment: Patient appears in no apparent distress at this time. Patient and/or iw family updated on plan of care and expected duration. Pain level reassessed. Patient is alert, oriented x 3, equal unlabored respirations, skin warm/dry/pink. 14:09 Reassessment: Patient appears in no apparent distress at this time. Patient and/or iw family updated on plan of care and expected duration. Pain level reassessed. Patient is alert, oriented x 3, equal unlabored respirations, skin warm/dry/pink. Patient denies pain at this time. Vital Signs: 10:44 BP 141 / 82; Pulse 102; Resp 18; Temp 98.3(O); Pulse Ox 97% on R/A; iw 12:04 BP 126 / 74; Pulse 78; Resp 19; Temp 97.9(O); Pulse Ox 97% on R/A; iw 13:59 Weight 93.89 kg (R); hb 19:32 BP 138 / 87; Pulse 115; Resp 20; Temp 98.3; Pulse Ox 96% on R/A; Pain 0/10; la4 19:32 Pain Scale: Adult la4 Katie Coma Score: 19:32 Eye Response: spontaneous(4). Motor Response: obeys commands(6). Verbal Response: la4 oriented(5). Total: 15. Trauma Score (Adult): 19:32 Eye Response: spontaneous(1); Verbal Response: oriented(1); Motor Response: obeys la4 commands(2); Systolic BP: > 89 mm Hg(4); Respiratory Rate: 10 to 29 per min(4); Katie Score: 15; Trauma Score: 12 ED Course: 10:42 Patient arrived in ED. rn 10:42 Arturo Real MD is Attending Physician. rn 10:43 Stacey Bill, DENIS is Primary Nurse. iw 10:45 Triage completed. iw 10:46 Arm band placed on. iw 11:00 Initial lab(s) drawn, by me, sent to lab. Inserted saline lock: 20 gauge in left iw antecubital area, using aseptic technique. Blood collected. Patient maintains SpO2 saturation greater than 95% on room air. 11:31 XRAY Chest (1 view) In Process Unspecified. EDMS 11:41 CT Chest For PE Angio In Process Unspecified. EDMS 11:41 CT Head Brain wo Cont In Process Unspecified. EDMS 12:49 Extrem Venous W Compression Espinoza US In Process Unspecified. EDMS 13:38 Brett Schmitz MD is Hospitalizing Provider. rn 18:22 Patient has correct armband on for positive identification. Client placed on continuous iw cardiac and pulse oximetry monitoring. NIBP monitoring applied. 19:25 No provider procedures requiring assistance completed. IV is patent, is intact, 20 G la4 pIV to left AC, 22 G PIV to right AC.. 19:30 Patient admitted, IV remains in place. la4 19:31 Provided Education on: plan of care and room number updated with pt and family.. Report la4 given to Ella BARRIOS. Administered Medications: 11:00 Drug: Magnesium Sulfate IVPB 1 grams IVPB once over 1 hrs Route: IVPB; Infused Over: 1 iw hrs; Site: left antecubital; 12:00 Follow up: IV Status: Completed infusion iw 14:06 Drug: Heparin (DVT/PE Drip) 18 units/kg/hr - ([place] [address] units, D5W IV 500 ml) IV iw at calculated rate Per protocol; Max initial rate 1800 units/hr {Co-Signature: ld1 (Nanci Watkins RN).} Route: IV; Rate: calculated rate; Site: left antecubital; 17:09 Follow up: IV Status: Infusion continued upon admission iw Medication: 11:00 VIS not applicable for this client. iw Outcome: 13:39 Decision to Hospitalize by Provider. rn 19:20 Admitted to Tele accompanied by tech, via stretcher, on monitor, with chart, Other la4 Heparin Drip infusing at 17 u/hr to left AC 20 G PIV. Last PTT 79.1 \T\ 1847. Stable on drip. Alert and oriented x4. Normal Saline \T\ 100 ml/hr to right AC IV. 19:20 Admitted to Tele Report called to Ella BARRIOS 19:20 Condition: stable 19:51 Patient left the ED. la4 Signatures: Dispatcher [employer] EDMS Stacey Bill RN RN Arturo Real MD MD rn Baxter, Heather, RN RN hb Andrews, La'Rea, RN RN la4 Sims, Nanci BARRIOS ld1 Corrections: (The following items were deleted from the chart) 11:30 10:44 BP 141 / 82; Pulse 102bpm; Resp 18bpm; Pulse Ox 97% RA; [facility] 12:08 12:04 Pulse 78bpm; Resp 19bpm; Pulse Ox 97% RA; [facility]
[2023-05-13] MEDS: HEPARIN/D5W 25,000 UNIT/500 ML BAG IV SCH (14:06)
[2023-05-13] MEDS ORDERED: HEPARIN/D5W 25,000 UNIT/500 ML BAG IV ONE (14:16)
[2023-05-13] MEDS ORDERED: ACETAMINOPHEN 500 MG TAB PO PRN (15:14)
[2023-05-13] MEDS ORDERED: MORPHINE 2 MG/ML SYR IV PRN (15:14)
[2023-05-13] MEDS ORDERED: ONDANSETRON 4 MG/2 ML VIAL IV PRN (15:14)
--- NOTE | 2023-05-13 15:14 | P.HP ---
Certification for Inpatient Patient admitted to: Inpatient With expected LOS: >2 Midnights Patient will require the following post-hospital care: None Practitioner: I am a practitioner with admitting privileges, knowledge of patient current condition, hospital course, and medical plan of care. Services: Services provided to patient in accordance with Admission requirements found in Title 42 Section 412.3 of the Code of Federal Regulations Patient History Date of Service: 05/13/23 Reason for admission: Shortness of breath/dizziness History of Present Illness: Patient is a 74-year-old gentleman with a history of atrial fibrillation who has been taking his sotalol and Xarelto for his atrial fibrillation. His rates been controlled and he follows up with licensed guide, Dr. Enrique in [place]. Patient has a history of DVT and pulmonary embolism. Ever since he has been on the Xarelto he has not had any pulm problems. Last night he noticed himself being really dizzy and not feeling like himself. His symptoms were not improving so he came into the emergency room a couple of days ago. They did labs and they did not really see any abnormalities so they discharged him home. He continued to have any issues and brought him back into the emergency room today. He had a CT PE protocol which revealed a pulmonary embolism in the right lower lobe and the right upper lobe. Patient also had a DVT. At this time, patient will be started on a heparin drip. Patient will be admitted to the hospital for observation. Patient states he has had malignancy work-up including PSA which is 2.7. He has had a Cologuard performed as well which has been negative. Otherwise, he follows up with his primary care provider regularly. He sees Dr. Cohen. I will notify him regarding patient's hospitalization. Allergies NKDA Allergy (Uncoded 06/26/15 21:56) Unknown No Known Allergies Allergy (Uncoded 10/27/15 20:32) Unknown Home Medications: Ascorbic Acid [Vitamin C] 250 mg PO DAILY 11/20/11 Cholecalciferol (Vitamin D3) [Vitamin D3] 400 unit PO DAILY 11/20/11 Sotalol HCl [Sotalol] 80 mg PO BID 11/20/11 Metformin HCl 1,000 mg PO DAILY 05/13/23 Rivaroxaban [Xarelto*] 15 mg PO DAILY 05/13/23 - Past Medical/Surgical History Diabetic: No -: Atrial fibrillation -: DVT -: Pulmonary embolism -: Hypertriglyceridemia Past Surgical History: Patient denies surgical history - Family History Father Family History: Reviewed- Non-Contributory Mother Medical History: Heart disease, Diabetes - Social History Smoking Status: Former smoker Alcohol use: Yes CD- Drugs: No Caffeine use: Yes Review of Systems 10-point ROS is otherwise unremarkable Physical Examination - Vital Signs Temperature: 98 F (reviewed) - Physical Exam General: Alert, In no apparent distress, Oriented x3 HEENT: Atraumatic, PERRLA, Mucous membr. moist/pink, EOMI, Sclerae nonicteric Neck: Supple, 2+ carotid pulse no bruit, No LAD, Without JVD or thyroid abnormality Respiratory: Clear to auscultation bilaterally, Normal air movement Cardiovascular: Irregular heart rate/rhythm Gastrointestinal: Normal bowel sounds, Soft and benign, Non-distended, No tenderness Musculoskeletal: No clubbing, No swelling, No tenderness Integumentary: No rashes Neurological: Normal gait, Normal speech, Normal strength at 5/5 x4 extr, Normal tone, Sensation intact, Normal affect Lymphatics: No axilla or inguinal lymphadenopathy - Studies Laboratory Data (last 24 hrs) 05/13/23 05/13/23 05/13/23 10:50 10:50 10:50 WBC 6.40 Hgb 14.9 Hct 42.7 Plt Count 207 PT 12.9 H INR 1.17 Sodium 135 L Potassium 4.4 BUN 24 H Creatinine 1.27 Glucose 236 H Magnesium 2.0 Assessment & Plan - Problems (Diagnosis) (1) Pulmonary embolism Current Visit: Yes Status: Acute (2) DVT (deep venous thrombosis) Current Visit: Yes Status: Acute (3) Atrial fibrillation Current Visit: Yes Status: Acute - Plan Plan: 1. Heparin drip 2. Pulmonary consultation 3. Echocardiogram 4. Outpatient follow-up and may need to increase dose of Xarelto or start E liquis. Also need to do an outpatient malignancy work-up. May need hypercoagulable work-up as well. Clinically, patient is doing well and patient is oxygen saturation are 100% and he is not tachycardiac or tachypneic. He is in A-fib and will continue sotalol. Patient will be admitted for observation. Discharge Plan: Home Plan to discharge in: 24 Hours - Advance Directives Does patient have a Living Will: No Does patient have a Durable POA for Healthcare: No - Code Status/Comfort Care Code Status Assessed: Yes Code Status: Full Code Critical Care: No Time Spent Managing PTS Care (In Minutes): 45
[2023-05-13] MEDS: SOTALOL HCL 80 MG TAB PO SCH (18:00)
[2023-05-13] MEDS: NA CHLORIDE 0.9% 1,000 ML IV SCH (18:45)
[2023-05-13] MEDS ORDERED: SOTALOL HCL 80 MG TAB ONE (18:54)
[2023-05-13] MEDS ORDERED: NA CHLORIDE 0.9% 1,000 ML ONE (18:54)
[2023-05-14] MEDS: HEPARIN/D5W 25,000 UNIT/500 ML BAG IV SCH (06:45)
[2023-05-14] MEDS: NA CHLORIDE 0.9% 1,000 ML IV SCH ×2 (06:46→16:59)
[2023-05-14] MEDS: SOTALOL HCL 80 MG TAB PO SCH ×2 (06:46→16:59)
[2023-05-14 07:05] LABS: Absolute Lymphocytes (CBC) 1.5 K/uL (0.7-4.9); Hematocrit 40.8 % (39.6-49.0); MCV 92.5 fL (80-100); MPV 6.9 fL (7.6-11.3); Platelets 178 thou/uL (152-406); RBC Red Blood Cell Count 4.42 M/uL (4.33-5.43)
[2023-05-14 07:37] LABS: Albumin 3.4 g/dL (3.4-5.0); Bilirubin Total 0.3 mg/dL (0.2-1.0); Potassium 4.4 mEq/L (3.5-5.1)
--- NOTE | 2023-05-14 10:03 | P.PN ---
Subjective Date of Service: 05/14/23 Chief Complaint: Shortness of breath/dizziness Subjective: No new changes, Doing well Patient History Date of Service: 05/13/23 Reason for admission: Shortness of breath/dizziness History of Present Illness: Patient is a 74-year-old gentleman with a history of atrial fibrillation who has been taking his sotalol and Xarelto for his atrial fibrillation. His rates been controlled and he follows up with machine made shoe unit worker, Dr. Enrique in [place]. Patient has a history of DVT and pulmonary embolism. Ever since he has been on the Xarelto he has not had any pulm problems. Last night he noticed himself being really dizzy and not feeling like himself. His symptoms were not improving so he came into the emergency room a couple of days ago. They did labs and they did not really see any abnormalities so they discharged him home. He continued to have any issues and brought him back into the emergency room today. He had a CT PE protocol which revealed a pulmonary embolism in the right lower lobe and the right upper lobe. Patient also had a DVT. At this time, patient will be started on a heparin drip. Patient will be admitted to the hospital for observation. 05/14/2023 Patient is alert oriented x3 Vital signs are stable Denies chest pain, discomfort, or any breathing issues On continuous heparin infusion No acute distress noticed Review of Systems 10-point ROS is otherwise unremarkable Physical Examination - Vital Signs Temperature: 97.0 F Blood Pressure: 124/69 Pulse: 66 Respirations: 18 Pulse Ox (%): 95 - Studies Laboratory Data (last 24 hrs) 05/13/23 05/13/23 05/13/23 10:50 10:50 10:50 WBC 6.40 Hgb 14.9 Hct 42.7 Plt Count 207 PT 12.9 H INR 1.17 APTT 36.1 Sodium Potassium BUN Creatinine Glucose Magnesium 05/13/23 10:50 WBC Hgb Hct Plt Count PT INR APTT Sodium 135 L Potassium 4.4 BUN 24 H Creatinine 1.27 Glucose 236 H Magnesium 2.0 Assessment And Plan - Plan - Physical Exam General: Alert, In no apparent distress, Oriented x3 HEENT: Atraumatic, PERRLA, Mucous membr. moist/pink, EOMI, Sclerae nonicteric Neck: Supple, 2+ carotid pulse no bruit, No LAD, Without JVD or thyroid abnormality Respiratory: Clear to auscultation bilaterally, Normal air movement Cardiovascular: Irregular heart rate/rhythm Gastrointestinal: Normal bowel sounds, Soft and benign, Non-distended, No tenderness Musculoskeletal: No clubbing, No swelling, No tenderness Integumentary: No rashes Neurological: Normal gait, Normal speech, Normal strength at 5/5 x4 extr, Normal tone, Sensation intact, Normal affect Lymphatics: No axilla or inguinal lymphadenopathy Assessment & Plan - Problems (Diagnosis) (1) Pulmonary embolism Current Visit: Yes Status: Acute (2) DVT (deep venous thrombosis) Current Visit: Yes Status: Acute (3) Atrial fibrillation Current Visit: Yes Status: Acute - Plan Plan: 1. Heparin drip 2. Pulmonary consultation 3. Echocardiogram 4. Outpatient follow-up and may need to increase dose of Xarelto or start Eliquis. * Also need to do an outpatient malignancy work-up. May need hypercoagulable work-up as well. Clinically, patient is doing well and patient is oxygen saturation are 100% and he is not tachycardiac or tachypneic. He is in A-fib and will continue sotalol. Patient will be admitted for observation. Spoke to Dr. Enrique Soap Tender's office. He is updated on the patient's condition. It is okay with him to disharge the patient on Eliquis and get the machine made shoe unit worker appointment in 1 week. * Discharge Plan: Home Plan to discharge in: 24 Hours - Advance Directives Does patient have a Living Will: No Does patient have a Durable POA for Healthcare: No - Code Status/Comfort Care Code Status Assessed: Yes Code Status: Full Code Critical Care: No Time Spent Managing PTS Care (In Minutes): 35
--- NOTE | 2023-05-14 18:08 | EKG ---
Test Date: 2023-05-13 Test Time: 10:39:14 Lumber Mover: ADAN MEASUREMENT RESULTS: Intervals: Rate: 101 [place]: QRSD: 74 QT: 356 QTc: 461 [place]: P: 69 NC: QRS: 50 T: 78 INTERPRETIVE STATEMENTS: Sinus tachycardia with 2nd degree AV block ([place]ob[place] I) Abnormal ECG Compared to ECG 05/11/2023 14:41:46 Sinus rhythm no longer present Electronically Signed On 05-14-23 18:05:53 CDT by Anderson Jamison
--- NOTE | 2023-05-14 18:37 | P.DS ---
Admission Date: 05/13/23 Discharge Date: 05/14/23 Disposition: ROUTINE DISCHARGE Discharge Condition: GOOD Reason for Admission: Shortness of breath/dizziness - Problems (1) Pulmonary embolism Status: Acute (2) DVT (deep venous thrombosis) Status: Acute (3) Atrial fibrillation Status: Chronic Brief History of Present Illness: Patient is a 74-year-old gentleman with a history of atrial fibrillation who has been taking his sotalol and Xarelto for his atrial fibrillation. His rates been controlled and he follows up with research computing specialist, Dr. Enrique in [place]. Patient has a history of DVT and pulmonary embolism. Ever since he has been on the Xarelto he has not had any pulm problems. Last night he noticed himself being really dizzy and not feeling like himself. His symptoms were not improving so he came into the emergency room a couple of days ago. They did labs and they d id not really see any abnormalities so they discharged him home. He continued to have any issues and brought him back into the emergency room today. He had a CT PE protocol which revealed a pulmonary embolism in the right lower lobe and the right upper lobe. Patient also had a DVT. At this time, patient will be started on a heparin drip. Patient will be admitted to the hospital for observation. Hospital Course: Mr. Medina Rogers is a pleasant male with a past medical history significant for pulmonary embolism and DVT who was admitted to the [facility] on 05/13/2023 for shortness of breath and dizziness. CT Chest showed Positive for pulmonary embolism with low clot burden. Though there is thrombus in the right main pulmonary artery, most of the clot is in a right upper lobe segmental artery. Patient was started on heparin drip. Discontinued Xarelto as patient developed pulmonary embolism while on Xarelto. Patient was discharged on Eliquis 5 mg p.o. twice daily. On 05/14/2023 patient was seen on morning rounds and deemed medically stable for discharge. Mr. Mcknight was discharged with instructions to schedule follow-up appointments with research computing specialist and PCP. was provided prescriptions for Eliquis. The patient and family members were given the opportunity to ask questions and reported no further questions. Furthermore, all questions were answered to the best of my ability. A copy of this discharge summary will be sent to the above providers to facilitate continuity of care. Vital Signs/Physical Exam: Temp Pulse Resp BP Pulse Ox 97.6 F 80 17 142/78 H 96 05/14/23 16:00 05/14/23 16:00 05/14/23 16:00 05/14/23 16:00 05/14/23 16:00 Laboratory Data at Discharge: WBC 6.00 thou/uL (4.3-10.9) 05/14/23 06:55 Hgb 14.3 g/dL (13.6-17.9) 05/14/23 06:55 Hct 40.8 % (39.6-49.0) 05/14/23 06:55 Plt Count 178 thou/uL (152-406) 05/14/23 06:55 PT 12.9 SECONDS (9.5-12.5) H 05/13/23 10:50 INR 1.17 05/13/23 10:50 APTT Cancelled 05/14/23 18:00 Sodium 136 mEq/L (136-145) 05/14/23 06:55 Potassium 4.4 mEq/L (3.5-5.1) 05/14/23 06:55 BUN 19 mg/dL (7-18) H 05/14/23 06:55 Creatinine 1.01 mg/dL (0.70-1.30) 05/14/23 06:55 Glucose 219 mg/dL (74-106) H 05/14/23 06:55 Magnesium 2.0 mg/dL (1.6-2.4) 05/13/23 10:50 Total Bilirubin 0.3 mg/dL (0.2-1.0) 05/14/23 06:55 AST 19 U/L (15-37) 05/14/23 06:55 ALT 30 U/L (16-61) 05/14/23 06:55 Alkaline Phosphatase 45 U/L (45-117) 05/14/23 06:55 Home Medications: Ascorbic Acid [Vitamin C] 250 mg PO DAILY 11/20/11 Cholecalciferol (Vitamin D3) [Vitamin D3] 400 unit PO DAILY 11/20/11 Sotalol HCl [Sotalol] 80 mg PO BID 11/20/11 Metformin HCl 1,000 mg PO DAILY 05/13/23 Apixaban [Eliquis] 5 mg PO BID #60 tab 05/14/23 New Medications: Apixaban [Eliquis] 5 mg PO BID #60 tab Physician Discharge Instructions: Please follow up with your PCP and Manager Cafe in 1 week. Diet: AHA Activity: Ad indy Followup: Matthew Cohen DO [Primary Care Provider] - Time spent managing pt's care (in minutes): 55 (minutes)
--- NOTE | 2023-05-15 07:02 | ECHO ---
HEIGHT: ft in WEIGHT: lb oz DATE OF STUDY: 05/14/[address]: Brett Schmitz MD 2-DIMENSIONAL: YES M.MODE: YES DOPPLER: YES COLOR FLOW: YES TDS: YES PORTABLE: YES DEFINITY: BUBBLE STUDY: DIAGNOSIS: PULMONARY EMBOLISM CARDIAC HISTORY: CATHERIZATION: SURGERY: PROSTHETIC VALVE: PACEMAKER: MEASUREMENTS (cm) DIASTOLIC (NORMALS) SYSTOLIC (NORMALS) IVSd 1.0 (0.6-1.2) LA Diam 3.9 (1.9-4.0) LVEF 67% LVIDd 4.6 (3.5-5.7) LVIDs 2.9 (2.0-3.5) %FS 37% LVPWd 1.2 (0.6-1.2) Ao Diam 2.7 (2.0-3.7) 2 DIMENSIONAL ASSESSMENT: RIGHT ATRIUM: NORMAL LEFT ATRIUM: NORMAL RIGHT VENTRICLE: NORMAL LEFT VENTRICLE: NORMAL TRICUSPID VALVE: NORMAL MITRAL VALVE: MILD MITRAL REGURGITATION PULMONIC VALVE: NORMAL AORTIC VALVE: NORMAL PERICARDIAL EFFUSION: NONE AORTIC ROOT: NORMAL LEFT VENTRICULAR WALL MOTION: NORMAL DOPPLER/COLOR FLOW: MILD MITRAL REGURGITATION COMMENTS: 1. NORMAL LEFT VENTRICULAR EJECTION FRACTION 60-65% 2. NORMAL WALL MOTION 3. MILD MITRAL REGURGITATION 4. NORMAL RIGHT VENTRICULAR SIZE AND FUNCTION TECHNOLOGIST: SONYA MENDOZA
--- NOTE | 2023-05-15 11:59 | EKG ---
Test Date: 2023-05-13 Test Time: 10:41:16 Employment And Claims Aide: ADAN MEASUREMENT RESULTS: Intervals: Rate: 115 [place]: 172 QRSD: 78 QT: 352 QTc: 486 [place]: P: 77 [place]: 172 QRS: 52 T: 78 INTERPRETIVE STATEMENTS: Sinus tachycardia with premature supraventricular complexes Otherwise normal ECG Compared to ECG 05/13/2023 10:39:14 Atrial premature complex(es) now present Electronically Signed On 05-15-23 11:54:53 CDT by Anderson Jamison
== END 2023-05-14 19:40 | disposition home or self-care (01) ==
LOC: ER 10:31 → ERHOLD 15:14 → 4TH 20:53
PROVIDERS: ADMIT Hospitalist; ATTEND Internal Medicine
DX: I26.99 Other pulmonary embolism without acute cor pulmonale (principal); I82.509 Chronic embolism and thrombosis of unspecified deep veins of unspecified lower extremity; I48.11 Longstanding persistent atrial fibrillation; Z79.01 Long term (current) use of anticoagulants; Z09 Encounter for follow-up examination after completed treatment for conditions other than malignant neoplasm; Z86.718 Personal history of other venous thrombosis and embolism
CPT/HCPCS: 96365; 96367; 93005; 93306; 85025 ×2; 80048; 36415; 83735; 85610; 85379; 85730 ×6; 84484; 80053; 83880; 70450; 71275; 71045; 93970; 99285; 96366; J3475; J7030 ×3; G0378